=== PATIENT | female | born 1970 ===

== ENCOUNTER 2016-09-11 08:27 | Inpatient (IN) | payer MEDICARE, MEDICAID ==
[2016-09-10 09:51] VITALS: BMI 32.2
[2016-09-11] MEDS ORDERED: Lactated Ringer's 1,000 ML IV ONE ×2 (11:45→12:55)
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
[2016-09-11] MEDS ORDERED: Lidocaine 2% w Epi 1:100,000 Inj IJ ONE (12:30)
[2016-09-11] MEDS ORDERED: Bupivacaine HCl 0.5% PF (30 ml) Inj IJ ONE (12:40)
[2016-09-11] MEDS ORDERED: HYDROmorphone 0.5 mg/0.5 ml ISec IVP PRN (13:17)
[2016-09-11] MEDS ORDERED: Naloxone 0.4 mg/ml Inj (Adult) IVP PRN (13:17)
--- NOTE | 2016-09-12 08:41 | CP.PCM.CON ---
History of Present Illness - History of Present Illness History of Present Illness: 46 yo woman s/p lumbar laminectomy, POD #1, is doing well clinically. Patient does have anxiety, but states that the pain is moderately controlled. Patient has a history of chronic pain and is under the management of multiple specialists. She's been taking Fentanyl patch 50mcg/hr, Percocet 10/325mg, Neurontin 600mg BID, and both Elavil and Doxepin per psychiatry. 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 She is currently complaining of pain at surgical site, with radiation down the legs. She denies side effects from the above medications. Past Patient History - Past Medical History & Family History Past Medical History?: Yes - Past Social History Smoking Status: Never Smoked - CARDIAC Hx Cardiac Disorders: Yes Other/Comment: TACHYCARDIA DUE TO ANXIETY AND DEPRESSION - PULMONARY Hx Respiratory Disorders: No - NEUROLOGICAL Hx Neurological Disorder: Yes Hx Dizziness: Yes Hx Vertigo: Yes Other/Comment: neuropathy ble - HEENT Hx HEENT Problems: No - RENAL Hx Chronic Kidney Disease: No - ENDOCRINE/METABOLIC Hx Endocrine Disorders: No - HEMATOLOGICAL/ONCOLOGICAL Hx Blood Disorders: No Hx Anemia: Yes Hx Blood Transfusions: No - INTEGUMENTARY Hx Dermatological Problems: No - MUSCULOSKELETAL/RHEUMATOLOGICAL Hx Musculoskeletal Disorders: Yes Hx Arthritis: Yes Hx Back Pain: Yes Hx Herniated Disk: Yes Hx Rheumatoid Arthritis: Yes - GASTROINTESTINAL Hx Gastrointestinal Disorders: Yes Hx Gall Bladder Disease: Yes Hx Gastritis: Yes Other/Comment: CONSTIPATION - GENITOURINARY/GYNECOLOGICAL Hx Genitourinary Disorders: No Hx Hematuria: Yes Hx Postmenopausal Bleeding: Yes (PT.REPORTS BELIEVES BLEEDING VAGINALLY ALSO SINCE URINE PROBLEM BEGAN ) - PSYCHIATRIC Hx Emotional Abuse: No Hx Physical Abuse: No - SURGICAL HISTORY Hx Surgeries: Yes Hx Cholecystectomy: Yes Hx Dilation and Curettage: Yes Hx Orthopedic Surgery: Yes (LEFT KNEE) Other/Comment: MYOMECTOMY - ANESTHESIA Hx Anesthesia: Yes Hx Anesthesia Reactions: No Hx Malignant Hyperthermia: No Has any member of the family had a problem w/ anesthesia?: No Meds Allergies/Adverse Reactions: Allergies Allergy/AdvReac Type Severity Reaction Status Date / Time pollen Allergy THROAT Uncoded 09/11/16 08:52 CLOSED - Medications Medications: Current Medications Hydromorphone HCl (Dilaudid 0.2 Mg/Ml Sports Statistician) 0 mg IV PRN PRN; Protocol PRN Reason: Pain, severe (8-10) Naloxone HCl (Narcan) 0.1 mg IVP Q2M PRN PRN Reason: Shortness of Breath Physical Exam - Respiratory Exam Respiratory Exam: NORMAL BREATHING PATTERN - Cardiovascular Exam Cardiovascular Exam: REGULAR RHYTHM - Back Exam Back exam: paraspinal tenderness, vertebral tenderness Results - Vital Signs Recent Vital Signs: Last Vital Signs Temp 98.8 F 09/12/16 08:00 Pulse 75 09/12/16 08:00 Resp 20 09/12/16 08:00 BP 119/73 09/12/16 08:00 Pulse Ox 99 09/12/16 08:00 Assessment & Plan - Assessment and Plan (Free Text) Assessment: 46 yo woman s/p lumbar laminectomy. POD #1. 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
--- NOTE | 2016-09-12 08:42 | PCM.SURG1 ---
Surgeon's Initial Post Op Note - Surgeon's Notes Surgeon: Dr. Fox Curator [employer]icultural [employer]: Dr. Jeanie Munoz Type of Anesthesia: General Endo Anesthesia Administered By: Dr. Amaro Pre-Operative Diagnosis: Lumbar radiculopathy, pain radiating to Right lower extremity Operative Findings: Materials: 3-0 Vicryl, Skin cash Post-Operative Diagnosis: same Operation Performed: L5, S1 sonia-laminectomy Specimen/Specimens Removed: Pathology bone L5, S1 Estimated Blood Loss: EBL {In ML}: 10 Blood Products Given: N/A Drains Used: No Drains Post-Op Condition: Good Date of Surgery/Procedure: 09/11/16 Time of Surgery/Procedure: 12:40
[2016-09-12] MEDS ORDERED: oxyCODONE 10 mg Immediate Release Tab PO PRN (08:46)
[2016-09-12] MEDS ORDERED: HYDROmorphone 0.5 mg/0.5 ml ISec IVP PRN (08:47)
[2016-09-12 09:07] LABS: RBC URINE 1 /hpf (0-3); URINE BACTERIA RARE (<OCC); URINE BILIRUBIN NEGATIVE (NEGATIVE); URINE BLOOD NEGATIVE (NEGATIVE); URINE COLOR YELLOW (YELLOW); URINE GLUCOSE (UA) NEG (Normal); URINE KETONE TRACE mg/dL (NEGATIVE); URINE LEUKOCYTE ESTERASE SMALL Leu/uL (Negative); URINE PROTEIN NEGATIVE (NEGATIVE); URINE UROBILINOGEN 0.2-1.0 mg/dL (0.2-1.0); WBC URINE 10 /hpf (0-5)
--- NOTE | 2016-09-12 10:07 | OP ---
PROCEDURE DATE: 09/11/2016 PREOPERATIVE DIAGNOSIS: Herniated lumbar disk at L5-S1. POSTOPERATIVE DIAGNOSIS: Herniated lumbar disk at L5-S1. PROCEDURES: Right L5-S1 hemilaminotomy, medial facetectomy, decompression. SURGEON: Dr. Fox. ARCHITECTURAL DRAFTSMAN: Rebeka. DESCRIPTION OF PROCEDURE: The patient was brought to the operating room, administered general endotracheal anesthesia, placed in a prone position on a Conner table. Care was taken to protect all the pressure points. Back of the lumbar area thoroughly prepped and draped in standard sterile manner after marking for skin incision for lumbar laminectomy at L5-S1. After prepping and draping the area, skin has been incised. Bleeding skins edges have been controlled with bipolar engineering psychologist. Using a Bovie engineering psychologist, paraspinal muscles have been detached from attachment of spinous process and lamina of L5- S1. A Porsche retractor has been applied to outer aspect of facet joint of L5- S1 and fluoroscopy has been done to confirm this level. At this point, by using high-speed drill, the lamina of L5-S1 and medial part of the facets of L4- 5 have been drilled. Drilling is continued till the top and bottom of the ligamentum flavum has been seen. Drilling is also continued on the medial part of the facet until the turn of ligamentum flavum has been seen. Once this has been done thoroughly, thinned out segments of lamina, medial part of the facets , ligamentum flavum has been removed, decompression has been achieved. Nerve root and dural tube have been retracted medially. There was a hard disk noted. There was no extruded fragment noted and there was no diskectomy performed. However, foraminotomy is performed decompressing this area. After that, hemostasis best achieved. The fascia closed, intraspinous ligament, spinous process with 1-0 Vicryl, subcutaneous with 3-0 Vicryl, skin has been closed with intradermal 3-0 Vicryl stitches. The patient tolerated the procedure. After procedure, mobilized to the recovery room in stable neurologic condition. Manjinder Fox MD cc: [id number] TT: 09/12/2016 10:07:10 mn MTDD
[2016-09-12] MEDS: oxyCODONE 5 mg Immediate Release Tab PO PRN ×3 (10:12→20:54)
--- NOTE | 2016-09-12 12:08 | RAD ---
PROCEDURE: HISTORY: Fluoroscopy for lumbar laminectomy COMPARISON: None TECHNIQUE: Total fluoroscopic time utilized during the procedure: 3.2 seconds Cumulative dose = 1.80 mGy FINDINGS: Submitted images from the current procedure: 1 IMPRESSION: Less than 1 hour fluoroscopic time utilized during performance of the procedure
[2016-09-13] MEDS: oxyCODONE 5 mg Immediate Release Tab PO PRN ×3 (03:20→16:15)
[2016-09-13 15:50] VITALS: BP 106/71; PULSE 109; RESP 20; TEMP 98.1; O2SAT 97
== END 2016-09-13 16:35 | DRG 460 ==
LOC: H.OPSURG 08:27 → H.TEL 14:49
PROVIDERS: ADMIT Family Medicine; ATTEND Family Medicine
PROC: [UNRECOGNIZED PROCEDURE] (2016-09-11)
PROC: 00NY0ZZ Release Lumbar Spinal Cord, Open Approach (ICD-10-PCS; 2016-09-11)
PROC: [UNRECOGNIZED PROCEDURE] (principal; 2016-09-11 12:15)
DX: M51.16 Intervertebral disc disorders with radiculopathy, lumbar region (principal); G62.9 Polyneuropathy, unspecified; F32.9 Major depressive disorder, single episode, unspecified; D64.9 Anemia, unspecified; F41.9 Anxiety disorder, unspecified; M06.9 Rheumatoid arthritis, unspecified; V43.52XA Car driver injured in collision with other type car in traffic accident, initial encounter; Z90.49 Acquired absence of other specified parts of digestive tract; R00.0 Tachycardia, unspecified; K29.70 Gastritis, unspecified, without bleeding; K59.00 Constipation, unspecified; M19.90 Unspecified osteoarthritis, unspecified site

== ENCOUNTER 2016-09-13 13:35 | Inpatient (IN) | payer MEDICARE, MEDICAID ==
[2016-09-13 17:30] VITALS: BMI 30.2
[2016-09-13] MEDS ORDERED: Oxycodone/Acetaminophen 5/325 mg Tab PO PRN (17:42)
[2016-09-14] MEDS: Oxycodone/Acetaminophen 5/325 mg Tab PO PRN ×3 (02:05→22:05)
[2016-09-14 06:35] LABS: HEMOGLOBIN 12.3 g/dL (12.0-16.0); MEAN CELL VOLUME 90.5 fl (81.0-99.0); MEAN CORPUSCULAR HGB CONC 33.1 g/dL (33.0-37.0); RBC 4.11 Mil/uL (3.80-5.20); RED CELL DISTRIBUTION WIDTH 13.5 % (11.5-14.5); WHITE BLOOD COUNT 6.3 K/uL (4.8-10.8)
[2016-09-14 06:53] LABS: ALB/GLOB RATIO 1.5 (1.0-2.1); ALBUMIN 4.3 g/dL (3.5-5.0); ALT/SGPT 94 U/L (9-52); AST/SGOT 50 U/L (14-36); BLOOD UREA NITROGEN 12 mg/dl (7-17); CALCIUM 8.7 mg/dL (8.4-10.2); GFR AFRICAN-AMERICAN > 60; GFR NON-AFRICAN AMERICAN > 60
--- NOTE | 2016-09-14 10:41 | CP.PCM.HP ---
History of Present Illness - History of Present Illness History of Present Illness: This is a 46 y/o female admitted for acute rehab, Had a lumbar laminectomy for herniated discs and chronic progressive lumbar radiculopathy. postoperatively she had so much pain and not responding well to current pain meds. She lives alone in a 3rd floor apartment and had to take the stairs to get her place. Present on Admission - Present on Admission Any Indicators Present on Admission: No History of DVT/PE: No History of Uncontrolled Diabetes: No Urinary Catheter: No Decubitus Ulcer Present: No Review of Systems - Musculoskeletal Musculoskeletal: Arthralgias, Back Pain, Neck Pain Past Patient History - Past Medical History & Family History Past Medical History?: Yes - Past Social History Smoking Status: Never Smoked - CARDIAC Hx Cardiac Disorders: Yes Other/Comment: TACHYCARDIA DUE TO ANXIETY AND DEPRESSION - PULMONARY Hx Respiratory Disorders: No - NEUROLOGICAL Hx Neurological Disorder: Yes Hx Dizziness: Yes Hx Vertigo: Yes Other/Comment: neuropathy ble - HEENT Hx HEENT Problems: No - RENAL Hx Chronic Kidney Disease: No - ENDOCRINE/METABOLIC Hx Endocrine Disorders: No - HEMATOLOGICAL/ONCOLOGICAL Hx Blood Disorders: No Hx AIDS: No Hx Anemia: Yes Hx Blood Transfusions: No Hx Human Immunodeficiency Virus (HIV): No - INTEGUMENTARY Hx Dermatological Problems: No - MUSCULOSKELETAL/RHEUMATOLOGICAL Hx Falls: No - GASTROINTESTINAL Hx Gastrointestinal Disorders: Yes Hx Gall Bladder Disease: Yes Hx Gastritis: Yes Other/Comment: CONSTIPATION - GENITOURINARY/GYNECOLOGICAL Hx Genitourinary Disorders: No Hx Hematuria: Yes Hx Postmenopausal Bleeding: Yes (PT.REPORTS BELIEVES BLEEDING VAGINALLY ALSO SINCE URINE PROBLEM BEGAN ) - PSYCHIATRIC Hx Anxiety: Yes Hx Depression: Yes Hx Substance Use: No - SURGICAL HISTORY Hx Surgeries: Yes Hx Cholecystectomy: Yes Hx Dilation and Curettage: Yes Hx Orthopedic Surgery: Yes (LEFT KNEE) Other/Comment: MYOMECTOMY - ANESTHESIA Hx Anesthesia: Yes Hx Anesthesia Reactions: No Hx Malignant Hyperthermia: No Meds Allergies/Adverse Reactions: Allergies Allergy/AdvReac Type Severity Reaction Status Date / Time pollen Allergy THROAT Uncoded 09/13/16 17:30 CLOSED Physical Exam - Head Exam Head Exam: NORMAL INSPECTION - Eye Exam Eye Exam: Normal appearance - ENT Exam ENT Exam: Mucous Membranes Moist - Respiratory Exam Respiratory Exam: Clear to Auscultation Bilateral - Cardiovascular Exam Cardiovascular Exam: REGULAR RHYTHM - GI/Abdominal Exam GI & Abdominal Exam: Normal Bowel Sounds - Neurological Exam Neurological exam: CN II-XII Intact, Oriented x3 Results - Vital Signs Recent Vital Signs: Last Vital Signs Temp 97.0 F L 09/14/16 08:15 Pulse 87 09/14/16 08:15 Resp 22 09/14/16 08:15 BP 122/71 09/14/16 08:15 Pulse Ox 95 09/14/16 08:15 - Labs Result Diagrams: 09/14/16 05:40 09/18/16 07:18 Labs: Laboratory Results - last 24 hr 09/14/16 09/14/16 05:40 05:40 WBC 6.3 RBC 4.11 Hgb 12.3 Hct 37.2 MCV 90.5 MCH 30.0 MCHC 33.1 RDW 13.5 Plt Count 182 Sodium 141 Potassium 3.3 L Chloride 107 Carbon Dioxide 22 Anion Gap 15 BUN 12 Creatinine 0.6 L Est GFR ( Amer) > 60 Est GFR (Non-Af Amer) > 60 Random Glucose 114 H Calcium 8.7 Total Bilirubin 0.6 AST 50 H ALT 94 H Alkaline Phosphatase 66 Total Protein 7.2 Albumin 4.3 Globulin 2.9 Albumin/Globulin Ratio 1.5 Assessment & Plan (1) Gait abnormality Status: Acute (2) S/P lumbar laminectomy Status: Acute (3) Chronic back pain Status: Acute (4) Lumbar radiculopathy Status: Acute - Assessment and Plan (Free Text) Plan: painmeds start PT transfers Physiatry eval
--- NOTE | 2016-09-14 13:05 | CP.PCM.PN ---
Subjective - Date & Time of Evaluation Date of Evaluation: 09/14/16 Time of Evaluation: 13:03 - Subjective Subjective: lumbar surgery, post op pain and reduced function Objective - Vital Signs/Intake and Output Vital Signs (last 24 hours): Temp Pulse Resp BP Pulse Ox 97.0 F L 87 22 122/71 95 09/14/16 08:15 09/14/16 08:15 09/14/16 08:15 09/14/16 08:15 09/14/16 08:15 - Medications Medications: Current Medications Amitriptyline HCl (Elavil) 10 mg PO DAILY [facility] [place] Last Admin: 09/14/16 09:09 Dose: 10 mg Cyclobenzaprine HCl (Flexeril) 5 mg PO HS PRN PRN Reason: Muscle spasm Docusate Sodium (Colace) 100 mg PO BID [facility] Last Admin: 09/14/16 09:05 Dose: 100 mg Fentanyl (Duragesic) 1 patch TD Q3D [facility] Last Admin: 09/13/16 19:14 Dose: Not Given Fluticasone Propionate (Flonase) 1 spr BEATRIS DAILY [facility] [place] Last Admin: 09/14/16 09:07 Dose: 1 spr Gabapentin (Neurontin) 600 mg PO HS [facility] [place] Lactulose (Enulose) 20 gm PO DAILY PRN PRN Reason: Constipation Last Admin: 09/14/16 09:09 Dose: 20 gm Loratadine (Claritin) 10 mg PO PRN [facility] Nortriptyline HCl (Pamelor) 50 mg PO HS [facility] [place] Last Admin: 09/13/16 21:27 Dose: 50 mg Oxycodone/Acetaminophen (Percocet 5/325 Mg Tab) 1 tab PO Q4 PRN PRN Reason: Pain, moderate (4-7) Stop: 09/16/16 17:43 Last Admin: 09/14/16 10:20 Dose: 1 tab Oxycodone/Acetaminophen (Percocet 5/325 Mg Tab) 2 tab PO Q4 PRN PRN Reason: Pain, severe (8-10) Stop: 09/16/16 17:43 Sennosides (Senokot Tab) 8.6 mg PO HS [facility] [place] Last Admin: 09/13/16 21:27 Dose: 8.6 mg Topiramate (Topamax) 100 mg PO BID [facility] [place] Last Admin: 09/14/16 09:09 Dose: 100 mg - Labs Labs: 09/14/16 05:40 09/14/16 05:40 Physiatry Overall Plan of Care - Overall Plan of Care Estimated Length of Stay in Weeks: 2 Rehab Impairment: Mobility, Gait, Balance Etiologic Diagnosis: Other (lumbar surgery) Rehab/Medical Prognosis: Fair - Anticipated Interventions Physical Therapy:: Yes Occupational Therapy:: Yes Speech Therapy:: No Recreational Therapy:: Yes - Therapy Goals Bed Mobility: Supervision Ambulation: Supervision Functional Positional Changes:: Supervision - Discharge Plan Identification of Barriers to Discharge: Home Situation Discharge Destination: Home
--- NOTE | 2016-09-14 13:07 | CP.PCM.CON ---
History of Present Illness - History of Present Illness History of Present Illness: Dr Vela PMR consultation on Mari Hernandez, born 1970, who has been admitted to [facility] for acute inpatient rehabilitation following an admission for intractable lumbar radiculopathy. She underwent a L5/S1 hemilaminectomy and facetectomy. There is still right lumbar radicular pain that is described as 4/ 10. She has not had a BM since Saturday (4+ days). Review of Systems - Constitutional Constitutional: absent: Anorexia, Chills - EENT Eyes: absent: Blind Spots, Blurred Vision Ears: absent: Decreased Hearing Nose/Mouth/Throat: absent: Nasal Congestion - Cardiovascular Cardiovascular: absent: Chest Pain - Respiratory Respiratory: absent: Cough, Dyspnea, Hemoptysis - Gastrointestinal Gastrointestinal: Bloating, Constipation - Musculoskeletal Musculoskeletal: Back Pain - Neurological Neurological: absent: Abnormal Hearing, Abnormal Movements Past Patient History - Past Medical History & Family History Past Medical History?: Yes - Past Social History Smoking Status: Never Smoked Alcohol: None Drugs: Denies Home Situation {Lives}: With Family (3rd floor) - CARDIAC Hx Cardiac Disorders: Yes Other/Comment: TACHYCARDIA DUE TO ANXIETY AND DEPRESSION - PULMONARY Hx Respiratory Disorders: No - NEUROLOGICAL Hx Neurological Disorder: Yes Hx Dizziness: Yes Hx Vertigo: Yes Other/Comment: neuropathy ble - HEENT Hx HEENT Problems: No - RENAL Hx Chronic Kidney Disease: No - ENDOCRINE/METABOLIC Hx Endocrine Disorders: No - HEMATOLOGICAL/ONCOLOGICAL Hx Blood Disorders: No Hx AIDS: No Hx Anemia: Yes Hx Blood Transfusions: No Hx Human Immunodeficiency Virus (HIV): No - INTEGUMENTARY Hx Dermatological Problems: No - MUSCULOSKELETAL/RHEUMATOLOGICAL Hx Falls: No - GASTROINTESTINAL Hx Gastrointestinal Disorders: Yes Hx Gall Bladder Disease: Yes Hx Gastritis: Yes Other/Comment: CONSTIPATION - GENITOURINARY/GYNECOLOGICAL Hx Genitourinary Disorders: No Hx Hematuria: Yes Hx Postmenopausal Bleeding: Yes (PT.REPORTS BELIEVES BLEEDING VAGINALLY ALSO SINCE URINE PROBLEM BEGAN ) - PSYCHIATRIC Hx Anxiety: Yes Hx Depression: Yes Hx Substance Use: No - SURGICAL HISTORY Hx Surgeries: Yes Hx Cholecystectomy: Yes Hx Dilation and Curettage: Yes Hx Orthopedic Surgery: Yes (LEFT KNEE) Other/Comment: MYOMECTOMY - ANESTHESIA Hx Anesthesia: Yes Hx Anesthesia Reactions: No Hx Malignant Hyperthermia: No Meds Allergies/Adverse Reactions: Allergies Allergy/AdvReac Type Severity Reaction Status Date / Time pollen Allergy THROAT Uncoded 09/13/16 17:30 CLOSED - Medications Medications: Current Medications Amitriptyline HCl (Elavil) 10 mg PO DAILY [facility] Last Admin: 09/14/16 09:09 Dose: 10 mg Cyclobenzaprine HCl (Flexeril) 5 mg PO HS PRN PRN Reason: Muscle spasm Docusate Sodium (Colace) 100 mg PO BID [facility] Last Admin: 09/14/16 09:05 Dose: 100 mg Fentanyl (Duragesic) 1 patch TD Q3D [facility] Last Admin: 09/13/16 19:14 Dose: Not Given Fluticasone Propionate (Flonase) 1 spr BEATRIS DAILY [facility] Last Admin: 09/14/16 09:07 Dose: 1 spr Gabapentin (Neurontin) 600 mg PO [facility] Lactulose (Enulose) 20 gm PO DAILY PRN PRN Reason: Constipation Last Admin: 09/14/16 09:09 Dose: 20 gm Loratadine (Claritin) 10 mg PO PRN [facility] Nortriptyline HCl (Pamelor) 50 mg PO [facility] Last Admin: 09/13/16 21:27 Dose: 50 mg Oxycodone/Acetaminophen (Percocet 5/325 Mg Tab) 1 tab PO Q4 PRN PRN Reason: Pain, moderate (4-7) Stop: 09/16/16 17:43 Last Admin: 09/14/16 10:20 Dose: 1 tab Oxycodone/Acetaminophen (Percocet 5/325 Mg Tab) 2 tab PO Q4 PRN PRN Reason: Pain, severe (8-10) Stop: 09/16/16 17:43 Sennosides (Senokot Tab) 8.6 mg PO [facility] Last Admin: 09/13/16 21:27 Dose: 8.6 mg Topiramate (Topamax) 100 mg PO BID [facility] Last Admin: 09/14/16 09:09 Dose: 100 mg Physical Exam - Constitutional Appears: No Acute Distress - Head Exam Head Exam: ATRAUMATIC, NORMAL INSPECTION, NORMOCEPHALIC - Eye Exam Eye Exam: EOMI, Normal appearance - ENT Exam ENT Exam: Mucous Membranes Moist - Respiratory Exam Respiratory Exam: NORMAL BREATHING PATTERN - Cardiovascular Exam Cardiovascular Exam: REGULAR RHYTHM - GI/Abdominal Exam GI & Abdominal Exam: Distended (markedly) - Extremities Exam Extremities exam: Negative for: calf tenderness - Neurological Exam Neurological exam: Alert, Oriented x3 - Psychiatric Exam Psychiatric exam: Normal Affect, Normal Mood - Skin Skin Exam: Warm Results - Vital Signs Recent Vital Signs: Last Vital Signs Temp 97.0 F L 09/14/16 08:15 Pulse 87 09/14/16 08:15 Resp 22 09/14/16 08:15 BP 122/71 09/14/16 08:15 Pulse Ox 95 09/14/16 08:15 - Labs Result Diagrams: 09/14/16 05:40 09/14/16 05:40 Labs: Laboratory Results - last 24 hr 09/14/16 09/14/16 05:40 05:40 WBC 6.3 RBC 4.11 Hgb 12.3 Hct 37.2 MCV 90.5 MCH 30.0 MCHC 33.1 RDW 13.5 Plt Count 182 Sodium 141 Potassium 3.3 L Chloride 107 Carbon Dioxide 22 Anion Gap 15 BUN 12 Creatinine 0.6 L Est GFR ( Amer) > 60 Est GFR (Non-Af Amer) > 60 Random Glucose 114 H Calcium 8.7 Total Bilirubin 0.6 AST 50 H ALT 94 H Alkaline Phosphatase 66 Total Protein 7.2 Albumin 4.3 Globulin 2.9 Albumin/Globulin Ratio 1.5 Assessment & Plan - Assessment and Plan (Free Text) Assessment: lumbar radiculopathy 04.130 impairment code PT/OT to continue to help increase functional independence Team conference for d/c planning Pain: controlled Vascular: no evidence of DVT GI: severe constipation not relieved with lactulose, will give Fleets, discussed with nursing Patient is an excellent acute rehabilitation candidate and will have focused pain management, wound care, PT, OT and recreational therapy to help facilitate a safe and appropriate d/c plan
[2016-09-15] MEDS: Oxycodone/Acetaminophen 5/325 mg Tab PO PRN ×2 (08:39→21:08)
[2016-09-15] MEDS: Nasal Spray(Ocean spray) NAS PRN (17:39)
[2016-09-16] MEDS ORDERED: FENTANYL 50 MCG TD SCH (09:00)
[2016-09-16] MEDS ORDERED: FENTANYL TD SCH (09:00)
[2016-09-16] MEDS ORDERED: Alum-Mag Hydrox-Simethicone Susp (30 mL) PO PRN (20:15)
[2016-09-17] MEDS: Pantoprazole 40 mg EC Tab PO SCH (08:01)
[2016-09-17] MEDS: Oxycodone/Acetaminophen 5/325 mg Tab PO PRN (08:04)
[2016-09-17] MEDS ORDERED: Alum-Mag Hydrox-Simethicone Susp (30 mL) PO SCH (09:00)
[2016-09-17 20:10] LABS: SQUAMOUS EPITHIAL 1 /hpf (0-5); URINE BILIRUBIN NEGATIVE (NEGATIVE); URINE BLOOD NEGATIVE (NEGATIVE); URINE CLARITY SLIGHTY-CLOUDY (Clear); URINE COLOR YELLOW (YELLOW); URINE GLUCOSE (UA) NEG (Normal); URINE LEUKOCYTE ESTERASE NEG Leu/uL (Negative); URINE NITRATE NEGATIVE (NEGATIVE); URINE PROTEIN NEGATIVE (NEGATIVE)
[2016-09-17] MEDS: Tmp-Smz 800 mg-160 mg DS Tab PO SCH (21:07)
[2016-09-18 07:52] LABS: BLOOD UREA NITROGEN 18 mg/dl (7-17); CALCIUM 9.2 mg/dL (8.4-10.2); GFR AFRICAN-AMERICAN > 60; GFR NON-AFRICAN AMERICAN > 60
[2016-09-18] MEDS: Tmp-Smz 800 mg-160 mg DS Tab PO SCH ×2 (08:37→21:08)
[2016-09-18] MEDS: Pantoprazole 40 mg EC Tab PO SCH (08:37)
[2016-09-18] MEDS: Oxycodone/Acetaminophen 5/325 mg Tab PO PRN (08:46)
--- NOTE | 2016-09-18 09:37 | CP.PCM.PN ---
Subjective - Date & Time of Evaluation Date of Evaluation: 09/15/16 Time of Evaluation: 10:00 - Subjective Subjective: patient continues to have a lot of back pain. Has no fever. Objective - Vital Signs/Intake and Output Vital Signs (last 24 hours): Temp Pulse Resp BP Pulse Ox 97.5 F L 86 20 132/76 98 09/18/16 08:00 09/18/16 08:00 09/18/16 08:00 09/18/16 08:00 09/18/16 08:00 - Medications Medications: Current Medications Al Hydrox/Mg Hydrox/Simethicone (Maalox Plus 30 Ml) 30 ml PO TID PRN PRN Reason: Heartburn Last Admin: 09/16/16 20:36 Dose: 30 ml Amitriptyline HCl (Elavil) 10 mg PO DAILY [facility] Last Admin: 09/18/16 08:38 Dose: 10 mg Cyclobenzaprine HCl (Flexeril) 5 mg PO HS PRN PRN Reason: Muscle spasm Docusate Sodium (Colace) 100 mg PO BID [facility] Last Admin: 09/18/16 08:37 Dose: Not Given Fentanyl (Duragesic) 1 patch TD Q3D@0900 [facility] Last Admin: 09/16/16 08:29 Dose: 1 patch Fluticasone Propionate (Flonase) 1 spr BEATRIS BID [facility] Last Admin: 09/18/16 08:38 Dose: Not Given Gabapentin (Neurontin) 600 mg PO [facility] Last Admin: 09/17/16 21:07 Dose: 600 mg Lactulose (Enulose) 20 gm PO DAILY PRN PRN Reason: Constipation Last Admin: 09/15/16 08:35 Dose: 20 gm Loratadine (Claritin) 10 mg PO DAILY [facility] Last Admin: 09/18/16 08:41 Dose: Not Given Nortriptyline HCl (Pamelor) 50 mg PO [facility] Last Admin: 09/17/16 21:07 Dose: 50 mg Oxycodone/Acetaminophen (Percocet 5/325 Mg Tab) 1 tab PO Q4 PRN PRN Reason: Pain, moderate (4-7) Stop: 09/20/16 17:43 Last Admin: 09/18/16 08:46 Dose: 1 tab Oxycodone/Acetaminophen (Percocet 5/325 Mg Tab) 2 tab PO Q4 PRN PRN Reason: Pain, severe (8-10) Stop: 09/20/16 17:43 Last Admin: 09/16/16 10:59 Dose: 2 tab Pantoprazole Sodium (Protonix Ec Tab) 40 mg PO DAILY [facility] Last Admin: 09/18/16 08:37 Dose: 40 mg Sennosides (Senokot Tab) 8.6 mg PO HS [facility] Last Admin: 09/17/16 21:50 Dose: Not Given Sodium Chloride ([place] Nasal [place]) 1 sprays BEATRIS Q4 PRN PRN Reason: Nasal congestion Last Admin: 09/15/16 17:39 Dose: 1 spr Topiramate (Topamax) 100 mg PO BID [facility] Last Admin: 09/18/16 08:39 Dose: 100 mg Trimethoprim/Sulfamethoxazole (Bactrim Ds Tab) 1 tab PO Q12 [facility] Last Admin: 09/18/16 08:37 Dose: 1 tab - Labs Labs: 09/14/16 05:40 09/18/16 07:18 - Head Exam Head Exam: NORMAL INSPECTION - Eye Exam Eye Exam: Normal appearance - ENT Exam ENT Exam: Mucous Membranes Moist, Normal Oropharynx - Cardiovascular Exam Cardiovascular Exam: REGULAR RHYTHM - GI/Abdominal Exam GI & Abdominal Exam: Normal Bowel Sounds Assessment and Plan (1) Gait abnormality Status: Acute (2) S/P lumbar laminectomy Status: Acute (3) Chronic back pain Status: Acute (4) Lumbar radiculopathy Status: Acute - Assessment and Plan (Free Text) Plan: Cont meds gabapentin percocet tramadol cont PT
--- NOTE | 2016-09-18 09:38 | CP.PCM.PN ---
Subjective - Date & Time of Evaluation Date of Evaluation: 09/16/16 Time of Evaluation: 10:00 - Subjective Subjective: Patient was able to do some therapy but has a lot of back pains. Has no bm Has no chest pain or SOB. Objective - Vital Signs/Intake and Output Vital Signs (last 24 hours): Temp Pulse Resp BP Pulse Ox 97.5 F L 86 20 132/76 98 09/18/16 08:00 09/18/16 08:00 09/18/16 08:00 09/18/16 08:00 09/18/16 08:00 - Medications Medications: Current Medications Al Hydrox/Mg Hydrox/Simethicone (Maalox Plus 30 Ml) 30 ml PO TID PRN PRN Reason: Heartburn Last Admin: 09/16/16 20:36 Dose: 30 ml Amitriptyline HCl (Elavil) 10 mg PO DAILY [facility] Last Admin: 09/18/16 08:38 Dose: 10 mg Cyclobenzaprine HCl (Flexeril) 5 mg PO HS PRN PRN Reason: Muscle spasm Docusate Sodium (Colace) 100 mg PO BID [facility] Last Admin: 09/18/16 08:37 Dose: Not Given Fentanyl (Duragesic) 1 patch TD Q3D@0900 [facility] Last Admin: 09/16/16 08:29 Dose: 1 patch Fluticasone Propionate (Flonase) 1 spr BEATRIS BID [facility] Last Admin: 09/18/16 08:38 Dose: Not Given Gabapentin (Neurontin) 600 mg PO HS [facility] Last Admin: 09/17/16 21:07 Dose: 600 mg Lactulose (Enulose) 20 gm PO DAILY PRN PRN Reason: Constipation Last Admin: 09/15/16 08:35 Dose: 20 gm Loratadine (Claritin) 10 mg PO DAILY [facility] Last Admin: 09/18/16 08:41 Dose: Not Given Nortriptyline HCl (Pamelor) 50 mg PO HS [facility] Last Admin: 09/17/16 21:07 Dose: 50 mg Oxycodone/Acetaminophen (Percocet 5/325 Mg Tab) 1 tab PO Q4 PRN PRN Reason: Pain, moderate (4-7) Stop: 09/20/16 17:43 Last Admin: 09/18/16 08:46 Dose: 1 tab Oxycodone/Acetaminophen (Percocet 5/325 Mg Tab) 2 tab PO Q4 PRN PRN Reason: Pain, severe (8-10) Stop: 09/20/16 17:43 Last Admin: 09/16/16 10:59 Dose: 2 tab Pantoprazole Sodium (Protonix Ec Tab) 40 mg PO DAILY [facility] Last Admin: 09/18/16 08:37 Dose: 40 mg Sennosides (Senokot Tab) 8.6 mg PO HS [facility] Last Admin: 09/17/16 21:50 Dose: Not Given Sodium Chloride ([place] Nasal [place]) 1 sprays BEATRIS Q4 PRN PRN Reason: Nasal congestion Last Admin: 09/15/16 17:39 Dose: 1 spr Topiramate (Topamax) 100 mg PO BID [facility] Last Admin: 09/18/16 08:39 Dose: 100 mg Trimethoprim/Sulfamethoxazole (Bactrim Ds Tab) 1 tab PO Q12 [facility] Last Admin: 09/18/16 08:37 Dose: 1 tab - Labs Labs: 09/14/16 05:40 09/18/16 07:18 - Head Exam Head Exam: NORMAL INSPECTION - Eye Exam Eye Exam: Normal appearance - ENT Exam ENT Exam: Mucous Membranes Moist - GI/Abdominal Exam GI & Abdominal Exam: Normal Bowel Sounds - Neurological Exam Neurological Exam: Awake, Oriented x3 Assessment and Plan (1) Gait abnormality Status: Acute (2) S/P lumbar laminectomy Status: Acute (3) Chronic back pain Status: Acute (4) Lumbar radiculopathy Status: Acute - Assessment and Plan (Free Text) Plan: Cont meds cont tx Cont PT pain meds.
--- NOTE | 2016-09-18 09:41 | CP.PCM.PN ---
Subjective - Date & Time of Evaluation Date of Evaluation: 09/17/16 Time of Evaluation: 10:00 - Subjective Subjective: Patient is doing a lot better. has one episode of loose stools Has no chets pain or SOB. Objective - Vital Signs/Intake and Output Vital Signs (last 24 hours): Temp Pulse Resp BP Pulse Ox 97.5 F L 86 20 132/76 98 09/18/16 08:00 09/18/16 08:00 09/18/16 08:00 09/18/16 08:00 09/18/16 08:00 - Medications Medications: Current Medications Al Hydrox/Mg Hydrox/Simethicone (Maalox Plus 30 Ml) 30 ml PO TID PRN PRN Reason: Heartburn Last Admin: 09/16/16 20:36 Dose: 30 ml Amitriptyline HCl (Elavil) 10 mg PO DAILY [facility] Last Admin: 09/18/16 08:38 Dose: 10 mg Cyclobenzaprine HCl (Flexeril) 5 mg PO HS PRN PRN Reason: Muscle spasm Docusate Sodium (Colace) 100 mg PO BID [facility] Last Admin: 09/18/16 08:37 Dose: Not Given Fentanyl (Duragesic) 1 patch TD Q3D@0900 [facility] Last Admin: 09/16/16 08:29 Dose: 1 patch Fluticasone Propionate (Flonase) 1 spr BEATRIS BID [facility] Last Admin: 09/18/16 08:38 Dose: Not Given Gabapentin (Neurontin) 600 mg PO [facility] Last Admin: 09/17/16 21:07 Dose: 600 mg Lactulose (Enulose) 20 gm PO DAILY PRN PRN Reason: Constipation Last Admin: 09/15/16 08:35 Dose: 20 gm Loratadine (Claritin) 10 mg PO DAILY [facility] Last Admin: 09/18/16 08:41 Dose: Not Given Nortriptyline HCl (Pamelor) 50 mg PO [facility] Last Admin: 09/17/16 21:07 Dose: 50 mg Oxycodone/Acetaminophen (Percocet 5/325 Mg Tab) 1 tab PO Q4 PRN PRN Reason: Pain, moderate (4-7) Stop: 09/20/16 17:43 Last Admin: 09/18/16 08:46 Dose: 1 tab Oxycodone/Acetaminophen (Percocet 5/325 Mg Tab) 2 tab PO Q4 PRN PRN Reason: Pain, severe (8-10) Stop: 09/20/16 17:43 Last Admin: 09/16/16 10:59 Dose: 2 tab Pantoprazole Sodium (Protonix Ec Tab) 40 mg PO DAILY [facility] Last Admin: 09/18/16 08:37 Dose: 40 mg Sennosides (Senokot Tab) 8.6 mg PO HS [facility] Last Admin: 09/17/16 21:50 Dose: Not Given Sodium Chloride ([place] Nasal [place]) 1 sprays BEATRIS Q4 PRN PRN Reason: Nasal congestion Last Admin: 09/15/16 17:39 Dose: 1 spr Topiramate (Topamax) 100 mg PO BID [facility] Last Admin: 09/18/16 08:39 Dose: 100 mg Trimethoprim/Sulfamethoxazole (Bactrim Ds Tab) 1 tab PO Q12 [facility] Last Admin: 09/18/16 08:37 Dose: 1 tab - Labs Labs: 09/14/16 05:40 09/18/16 07:18 - Head Exam Head Exam: NORMAL INSPECTION - Eye Exam Eye Exam: Normal appearance - ENT Exam ENT Exam: Mucous Membranes Moist - Respiratory Exam Respiratory Exam: Clear to Ausculation Bilateral - Cardiovascular Exam Cardiovascular Exam: REGULAR RHYTHM - GI/Abdominal Exam GI & Abdominal Exam: Normal Bowel Sounds - Neurological Exam Neurological Exam: CN II-XII Intact, Oriented x3 Assessment and Plan (1) Gait abnormality Status: Acute (2) S/P lumbar laminectomy Status: Acute (3) Chronic back pain Status: Acute (4) Lumbar radiculopathy Status: Acute - Assessment and Plan (Free Text) Plan: Con tmeds Cont tx Cont PT
--- NOTE | 2016-09-18 09:46 | CP.PCM.PN ---
Subjective - Date & Time of Evaluation Date of Evaluation: 09/18/16 Time of Evaluation: 09:46 - Subjective Subjective: patinet has few episodes of loose stools Has no fever Has no vomiting Has no abd pain Objective - Vital Signs/Intake and Output Vital Signs (last 24 hours): Temp Pulse Resp BP Pulse Ox 97.5 F L 86 20 132/76 98 09/18/16 08:00 09/18/16 08:00 09/18/16 08:00 09/18/16 08:00 09/18/16 08:00 - Medications Medications: Current Medications Al Hydrox/Mg Hydrox/Simethicone (Maalox Plus 30 Ml) 30 ml PO TID PRN PRN Reason: Heartburn Last Admin: 09/16/16 20:36 Dose: 30 ml Amitriptyline HCl (Elavil) 10 mg PO DAILY [facility] Last Admin: 09/18/16 08:38 Dose: 10 mg Cyclobenzaprine HCl (Flexeril) 5 mg PO HS PRN PRN Reason: Muscle spasm Docusate Sodium (Colace) 100 mg PO BID [facility] Last Admin: 09/18/16 08:37 Dose: Not Given Fentanyl (Duragesic) 1 patch TD Q3D@0900 [facility] Last Admin: 09/16/16 08:29 Dose: 1 patch Fluticasone Propionate (Flonase) 1 spr BEATRIS BID [facility] Last Admin: 09/18/16 08:38 Dose: Not Given Gabapentin (Neurontin) 600 mg PO [facility] Last Admin: 09/17/16 21:07 Dose: 600 mg Lactulose (Enulose) 20 gm PO DAILY PRN PRN Reason: Constipation Last Admin: 09/15/16 08:35 Dose: 20 gm Loratadine (Claritin) 10 mg PO DAILY [facility] Last Admin: 09/18/16 08:41 Dose: Not Given Nortriptyline HCl (Pamelor) 50 mg PO [facility] Last Admin: 09/17/16 21:07 Dose: 50 mg Oxycodone/Acetaminophen (Percocet 5/325 Mg Tab) 1 tab PO Q4 PRN PRN Reason: Pain, moderate (4-7) Stop: 09/20/16 17:43 Last Admin: 09/18/16 08:46 Dose: 1 tab Oxycodone/Acetaminophen (Percocet 5/325 Mg Tab) 2 tab PO Q4 PRN PRN Reason: Pain, severe (8-10) Stop: 09/20/16 17:43 Last Admin: 09/16/16 10:59 Dose: 2 tab Pantoprazole Sodium (Protonix Ec Tab) 40 mg PO DAILY [facility] Last Admin: 09/18/16 08:37 Dose: 40 mg Sennosides (Senokot Tab) 8.6 mg PO HS [facility] Last Admin: 09/17/16 21:50 Dose: Not Given Sodium Chloride ([place] Nasal [place]) 1 sprays BEATRIS Q4 PRN PRN Reason: Nasal congestion Last Admin: 09/15/16 17:39 Dose: 1 spr Topiramate (Topamax) 100 mg PO BID [facility] Last Admin: 09/18/16 08:39 Dose: 100 mg Trimethoprim/Sulfamethoxazole (Bactrim Ds Tab) 1 tab PO Q12 [facility] Last Admin: 09/18/16 08:37 Dose: 1 tab - Labs Labs: 09/14/16 05:40 09/18/16 07:18 - Head Exam Head Exam: NORMAL INSPECTION - Eye Exam Eye Exam: Normal appearance - Respiratory Exam Respiratory Exam: Clear to Ausculation Bilateral - Cardiovascular Exam Cardiovascular Exam: REGULAR RHYTHM - GI/Abdominal Exam GI & Abdominal Exam: Normal Bowel Sounds Assessment and Plan (1) Gait abnormality Status: Acute (2) S/P lumbar laminectomy Status: Acute (3) Chronic back pain Status: Acute (4) Lumbar radiculopathy Status: Acute - Assessment and Plan (Free Text) Plan: Con tmeds Cont tx Cont PT Pain meds Lomotil stool C diff
[2016-09-18] MEDS: Cholestyramine 4 gm/Pkt UD PO SCH ×2 (13:12→16:21)
[2016-09-18] MEDS ORDERED: Potassium Chloride 20 mEq ER Tab PO ONE (13:36)
--- NOTE | 2016-09-18 13:40 | CP.PCM.PN ---
Subjective - Date & Time of Evaluation Date of Evaluation: 09/18/16 Time of Evaluation: 13:39 - Subjective Subjective: Patient seen in room doing ok notes significant decrease in pain and reduction of right LE radicular symptoms happy with progress continue current care Objective - Vital Signs/Intake and Output Vital Signs (last 24 hours): Temp Pulse Resp BP Pulse Ox 97.5 F L 86 20 132/76 98 09/18/16 08:00 09/18/16 08:00 09/18/16 08:00 09/18/16 08:00 09/18/16 08:00 - Medications Medications: Current Medications Al Hydrox/Mg Hydrox/Simethicone (Maalox Plus 30 Ml) 30 ml PO TID PRN PRN Reason: Heartburn Last Admin: 09/16/16 20:36 Dose: 30 ml Amitriptyline HCl (Elavil) 10 mg PO DAILY [facility] Last Admin: 09/18/16 08:38 Dose: 10 mg Cholestyramine Resin (Questran) 4 gm PO TID [facility] Last Admin: 09/18/16 13:12 Dose: 4 gm Cyclobenzaprine HCl (Flexeril) 5 mg PO HS PRN PRN Reason: Muscle spasm Docusate Sodium (Colace) 100 mg PO BID [facility] Last Admin: 09/18/16 08:37 Dose: Not Given Fentanyl (Duragesic) 1 patch TD Q3D@0900 [facility] Last Admin: 09/16/16 08:29 Dose: 1 patch Fluticasone Propionate (Flonase) 1 spr BEATRIS BID [facility] Last Admin: 09/18/16 08:38 Dose: Not Given Gabapentin (Neurontin) 600 mg PO [facility] Last Admin: 09/17/16 21:07 Dose: 600 mg Lactulose (Enulose) 20 gm PO DAILY PRN PRN Reason: Constipation Last Admin: 09/15/16 08:35 Dose: 20 gm Loratadine (Claritin) 10 mg PO DAILY [facility] Last Admin: 09/18/16 08:41 Dose: Not Given Nortriptyline HCl (Pamelor) 50 mg PO HS [facility] Last Admin: 09/17/16 21:07 Dose: 50 mg Oxycodone/Acetaminophen (Percocet 5/325 Mg Tab) 1 tab PO Q4 PRN PRN Reason: Pain, moderate (4-7) Stop: 09/20/16 17:43 Last Admin: 09/18/16 08:46 Dose: 1 tab Oxycodone/Acetaminophen (Percocet 5/325 Mg Tab) 2 tab PO Q4 PRN PRN Reason: Pain, severe (8-10) Stop: 09/20/16 17:43 Last Admin: 09/16/16 10:59 Dose: 2 tab Pantoprazole Sodium (Protonix Ec Tab) 40 mg PO DAILY [facility] Last Admin: 09/18/16 08:37 Dose: 40 mg Potassium Chloride (K-Dur 20 Meq Er Tab) 40 meq PO DAILY [facility] Potassium Chloride ([place]-Con 10) 40 meq PO ONCE ONE Stop: 09/18/16 13:37 Sennosides (Senokot Tab) 8.6 mg PO HS [facility] Last Admin: 09/17/16 21:50 Dose: Not Given Sodium Chloride ([place] Nasal [place]) 1 sprays BEATRIS Q4 PRN PRN Reason: Nasal congestion Last Admin: 09/15/16 17:39 Dose: 1 spr Topiramate (Topamax) 100 mg PO BID [facility] Last Admin: 09/18/16 08:39 Dose: 100 mg Trimethoprim/Sulfamethoxazole (Bactrim Ds Tab) 1 tab PO Q12 [facility] Last Admin: 09/18/16 08:37 Dose: 1 tab - Labs Labs: 09/14/16 05:40 09/18/16 07:18
[2016-09-18] MEDS: Nasal Spray(Ocean spray) NAS PRN (16:18)
[2016-09-19 06:49] LABS: BLOOD UREA NITROGEN 13 mg/dl (7-17); CALCIUM 9.2 mg/dL (8.4-10.2); GFR AFRICAN-AMERICAN > 60; GFR NON-AFRICAN AMERICAN > 60
[2016-09-19] MEDS: Tmp-Smz 800 mg-160 mg DS Tab PO SCH ×2 (08:33→21:02)
[2016-09-19] MEDS: Potassium Chloride 20 mEq ER Tab PO SCH (08:35)
[2016-09-19] MEDS: Pantoprazole 40 mg EC Tab PO SCH (08:35)
[2016-09-19] MEDS: Cholestyramine 4 gm/Pkt UD PO SCH (08:36)
--- NOTE | 2016-09-19 10:11 | CP.PCM.PN ---
Subjective - Date & Time of Evaluation Date of Evaluation: 09/19/16 Time of Evaluation: 10:09 - Subjective Subjective: Patient has no chest pain or SOB Afebrile Has no diarrhea today Doing better with PT Objective - Vital Signs/Intake and Output Vital Signs (last 24 hours): Temp Pulse Resp BP Pulse Ox 97 F L 84 18 100/70 100 09/19/16 07:57 09/19/16 07:57 09/19/16 07:57 09/19/16 07:57 09/19/16 07:57 - Medications Medications: Current Medications Al Hydrox/Mg Hydrox/Simethicone (Maalox Plus 30 Ml) 30 ml PO TID PRN PRN Reason: Heartburn Last Admin: 09/16/16 20:36 Dose: 30 ml Amitriptyline HCl (Elavil) 10 mg PO DAILY [facility] Last Admin: 09/19/16 08:34 Dose: 10 mg Cyclobenzaprine HCl (Flexeril) 5 mg PO HS PRN PRN Reason: Muscle spasm Docusate Sodium (Colace) 100 mg PO BID [facility] Last Admin: 09/19/16 08:34 Dose: 100 mg Fentanyl (Duragesic) 1 patch TD Q3D@0900 [facility] Last Admin: 09/19/16 08:32 Dose: 1 patch Fluticasone Propionate (Flonase) 1 spr BEATRIS BID [facility] Last Admin: 09/18/16 16:19 Dose: 1 spr Gabapentin (Neurontin) 600 mg PO HS [facility] Last Admin: 09/18/16 21:09 Dose: 600 mg Lactulose (Enulose) 20 gm PO DAILY PRN PRN Reason: Constipation Last Admin: 09/15/16 08:35 Dose: 20 gm Loratadine (Claritin) 10 mg PO DAILY [facility] Last Admin: 09/19/16 08:50 Dose: Not Given Nortriptyline HCl (Pamelor) 50 mg PO [facility] Last Admin: 09/18/16 21:09 Dose: 50 mg Oxycodone/Acetaminophen (Percocet 5/325 Mg Tab) 1 tab PO Q4 PRN PRN Reason: Pain, moderate (4-7) Stop: 09/20/16 17:43 Last Admin: 09/18/16 08:46 Dose: 1 tab Oxycodone/Acetaminophen (Percocet 5/325 Mg Tab) 2 tab PO Q4 PRN PRN Reason: Pain, severe (8-10) Stop: 09/20/16 17:43 Last Admin: 09/16/16 10:59 Dose: 2 tab Pantoprazole Sodium (Protonix Ec Tab) 40 mg PO DAILY [facility] Last Admin: 09/19/16 08:35 Dose: 40 mg Potassium Chloride (K-Dur 20 Meq Er Tab) 40 meq PO DAILY [facility] Last Admin: 09/19/16 08:35 Dose: 40 meq Sennosides (Senokot Tab) 8.6 mg PO HS [facility] Last Admin: 09/18/16 21:11 Dose: Not Given Sodium Chloride ([place] Nasal [place]) 1 sprays BEATRIS Q4 PRN PRN Reason: Nasal congestion Last Admin: 09/18/16 16:18 Dose: 1 spr Topiramate (Topamax) 100 mg PO BID [facility] Last Admin: 09/19/16 08:36 Dose: 100 mg Trimethoprim/Sulfamethoxazole (Bactrim Ds Tab) 1 tab PO Q12 [facility] Last Admin: 09/19/16 08:33 Dose: 1 tab - Labs Labs: 09/14/16 05:40 09/19/16 05:20 - Head Exam Head Exam: NORMAL INSPECTION - Eye Exam Eye Exam: Normal appearance - Respiratory Exam Respiratory Exam: Clear to Ausculation Bilateral - Cardiovascular Exam Cardiovascular Exam: REGULAR RHYTHM - GI/Abdominal Exam GI & Abdominal Exam: Normal Bowel Sounds - Neurological Exam Neurological Exam: CN II-XII Intact, Oriented x3 - Psychiatric Exam Psychiatric exam: Normal Mood Assessment and Plan (1) Gait abnormality Status: Acute (2) S/P lumbar laminectomy Status: Acute (3) Chronic back pain Status: Acute (4) Lumbar radiculopathy Status: Acute - Assessment and Plan (Free Text) Plan: Cont meds Conttx Cont PT 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
--- NOTE | 2016-09-19 12:07 | PSY.TMCNF ---
Nursing - Vital Signs Vital Signs (Last 8 hours): Vital Signs 09/19/16 07:57 Temperature 97 F L Pulse Rate 84 Respiratory 18 Rate Blood Pressure 100/70 O2 Sat by Pulse 100 Oximetry Pain: 0 - Precautions: Isolation: Special Contact - Medications/Other Issues Comment: patient had loose bm and abdominal upst had 5x bm yesterday blood works with low potassium given [address] on contact precaution for c-diff untill specimen sent with the result - Consults Comment: Dr Vela - Skin Incision Site: back Dressing Status: Clean, Dry, Intact Incision: Healing Well Incision Line Treatment: cleanse with ns gauze and tape daily - Wound Lower Back Wound Type: Incision Tunneling: No Undermining: No Wound Drainage Amount: None Wound General Appearance: Clean/Dry Wound Dressing Status: Dry & Intact Dressing Changed: No Wound Packing Type: Gauze Pads, Not applicable Wound Primary Dressing Type: Gauze Pads - Toileting Toileting: Minimal Assistance - Bladder Management Bladder Pattern: Normal Voiding Method: Toilet - Bowel Management Bowel Pattern: Diarrhea Comment: 2x soft to loose bm Bowel Management: Minimal Assistance - Transfers Transfers: Supervision - ADL's ADL's: Supervision - Pain Management Comments: on percocet for pain - Patient/Family Teaching Comments: spinal precaution ,isolation precaution, handwashing safety fall medication teaching - Goals/Time Frame Comments: as per multidiciplinary plan of care Physical Therapy - Bed Mobility Bed Mobility: Verbal Cues, Minimal Assistance Comment: log rolling method, HOB elevated w/ bed rail - Transfers Sit to Stand: Supervision, Verbal Cues - Ambulation Level of Assistance: Supervision Distance (ft.): 120 Assistive Devices: Rolling Walker - Stair Negotiation Stairs: Level of Assistance: Verbal Cues, Contact Guard Number of Stairs: 11 Stairs: Assistive Devices: Left Handrail, Right Handrail - Standing Balance Static Stand: Supervision Dynamic Stand: Contact Guard Assist, Minimal Assistance Comment: w/ RW - Pain Management Techniques: Medication - Insight/Carryover Insight/Carryover: Fair - Patient/Family Education Comment: Adaptive equipment, spinal precautions, compensatory strategies, safety with walker mgmt, POC, d/c recommendations, energy conservation - Assessment/Plan Assessment: Pt is a 46 year old female s/p lami, pt educated on spinal precautions and use of AE to complete LE Dressing, as well as bedside commode and tub txfer bench, pt currently S with ADLs and ADL transfers. Recommend continued skilled OT services to maximize functional independence to return home. - Goals Timeframe: 2 weeks Goals: MOD I with ADL transfers. MOD I With ADLs. MOD I with basic IADLs - Provider License Number: [id number] Occupational Therapy - Arousal/Attention/Orientation Level of Consciousness: Awake, Alert Patient Orientation: Person, Place, Time, Appropriate to Age, Appropriate to Situation - ADL/IADL Self Feeding: Independent Grooming: Verbal Cues, Set-up Help Bathing-Upper Extremity: Supervision, Verbal Cues, Set-up Help Bathing-Lower Extremity: Minimal Assistance, Moderate Assistance Dressing-Upper Extremity: Minimal Assistance Dressing-Lower Extremity: Minimal Assistance - Sitting Balance Static Sitting: Supervision Dynamic Sitting: Contact Guard Assist - Transfers Wheelchair to Bed Transfers: Verbal Cues, Set-up Help, Contact Guard Toilet Transfers: Supervision, Verbal Cues, Set-up Help - Upper Extremity Status Right Upper Extremity Comment: ROM WFL Generalized weakness Left Upper Extremity Comment: ROM WFL Generalized weakness - Pain Alleviating Techniques: Medication - Insight/Carryover Insight/Carryover: Fair - Patient/Family Education Comment: Adaptive equipment, spinal precautions, compensatory strategies, safety with walker mgmt, POC, d/c recommendations, energy conservation - Assessment/Plan Assessment: Pt is a 46 year old female s/p lami, pt educated on spinal precautions and use of AE to complete LE Dressing, as well as bedside commode and tub txfer bench, pt currently S with ADLs and ADL transfers. Recommend continued skilled OT services to maximize functional independence to return home. - Goals Timeframe: 2 weeks Goals: MOD I with ADL transfers. MOD I With ADLs. MOD I with basic IADLs - Provider Therapist: Gwendolyn Tyson License Number: [id number] Speech Therapy - Plan Assessment: Pt is a 46 year old female s/p lami, pt educated on spinal precautions and use of AE to complete LE Dressing, as well as bedside commode and tub txfer bench, pt currently S with ADLs and ADL transfers. Recommend continued skilled OT services to maximize functional independence to return home. Recreational Therapy - Participation Participation: Monitors His/Her Own Leisure Time - Attendance Attendance: 3-5 times per week - Activities Leisure Activities: Television - Socialization Level of Socialization: Initiates/interacts freely with care givers and peer - Diversional Time Diversional Time: television, sleeping - Assessment Assessment/Plan: Pt is a 46 year old female s/p lami, pt educated on spinal precautions and use of AE to complete LE Dressing, as well as bedside commode and tub txfer bench, pt currently S with ADLs and ADL transfers. Recommend continued skilled OT services to maximize functional independence to return home. - Provider Therapist: Inez Cho, LOGISTICS [employer]AD #[id number] Nutrition - Current Diet Current Diet/ Supplement/ Feedings: Heart healthy - Appetite Percent Meal Consumed: 75-100% - Comments Comments: spinal precaution ,isolation precaution, handwashing safety fall medication teaching - Assessment/Goals/Time Frame Assessment/Goals/Time Frame: patient had loose bm and abdominal upst had 5x bm yesterday blood works with low potassium given [address] on contact precaution for c-diff untill specimen sent with the result - Provider Provider: Afia Han RD Case Management - Discharge Plan Discharge Plan: Home with significant other/family (September 29 Dc moniote bowels)
--- NOTE | 2016-09-19 13:11 | CP.PCM.PN ---
Subjective - Date & Time of Evaluation Date of Evaluation: 09/19/16 Time of Evaluation: 08:00 - Subjective Subjective: no acute complaints Objective - Vital Signs/Intake and Output Vital Signs (last 24 hours): Temp Pulse Resp BP Pulse Ox 97 F L 84 18 100/70 100 09/19/16 07:57 09/19/16 07:57 09/19/16 07:57 09/19/16 07:57 09/19/16 07:57 - Medications Medications: Current Medications Al Hydrox/Mg Hydrox/Simethicone (Maalox Plus 30 Ml) 30 ml PO TID PRN PRN Reason: Heartburn Last Admin: 09/16/16 20:36 Dose: 30 ml Amitriptyline HCl (Elavil) 10 mg PO DAILY [facility] Last Admin: 09/19/16 08:34 Dose: 10 mg Cyclobenzaprine HCl (Flexeril) 5 mg PO HS PRN PRN Reason: Muscle spasm Docusate Sodium (Colace) 100 mg PO BID [facility] Last Admin: 09/19/16 08:34 Dose: 100 mg Fentanyl (Duragesic) 1 patch TD Q3D@0900 [facility] Last Admin: 09/19/16 08:32 Dose: 1 patch Fluticasone Propionate (Flonase) 1 spr BEATRIS BID [facility] Last Admin: 09/19/16 12:18 Dose: Not Given Gabapentin (Neurontin) 600 mg PO [facility] Last Admin: 09/18/16 21:09 Dose: 600 mg Lactulose (Enulose) 20 gm PO DAILY PRN PRN Reason: Constipation Last Admin: 09/15/16 08:35 Dose: 20 gm Loratadine (Claritin) 10 mg PO DAILY [facility] Last Admin: 09/19/16 08:50 Dose: Not Given Nortriptyline HCl (Pamelor) 50 mg PO [facility] Last Admin: 09/18/16 21:09 Dose: 50 mg Oxycodone/Acetaminophen (Percocet 5/325 Mg Tab) 1 tab PO Q4 PRN PRN Reason: Pain, moderate (4-7) Stop: 09/20/16 17:43 Last Admin: 09/18/16 08:46 Dose: 1 tab Oxycodone/Acetaminophen (Percocet 5/325 Mg Tab) 2 tab PO Q4 PRN PRN Reason: Pain, severe (8-10) Stop: 09/20/16 17:43 Last Admin: 09/16/16 10:59 Dose: 2 tab Pantoprazole Sodium (Protonix Ec Tab) 40 mg PO DAILY [facility] Last Admin: 09/19/16 08:35 Dose: 40 mg Potassium Chloride (K-Dur 20 Meq Er Tab) 40 meq PO DAILY [facility] Last Admin: 09/19/16 08:35 Dose: 40 meq Sennosides (Senokot Tab) 8.6 mg PO HS [facility] Last Admin: 09/18/16 21:11 Dose: Not Given Sodium Chloride ([place] Nasal [place]) 1 sprays BEATRIS Q4 PRN PRN Reason: Nasal congestion Last Admin: 09/18/16 16:18 Dose: 1 spr Topiramate (Topamax) 100 mg PO BID [facility] Last Admin: 09/19/16 08:36 Dose: 100 mg Trimethoprim/Sulfamethoxazole (Bactrim Ds Tab) 1 tab PO Q12 [facility] Last Admin: 09/19/16 08:33 Dose: 1 tab - Labs Labs: 09/14/16 05:40 09/19/16 05:20 - Head Exam Head Exam: ATRAUMATIC, NORMAL INSPECTION, NORMOCEPHALIC - Eye Exam Eye Exam: EOMI, Normal appearance, PERRL Pupil Exam: NORMAL ACCOMODATION - ENT Exam ENT Exam: Mucous Membranes Moist, Normal Exam - Respiratory Exam Respiratory Exam: NORMAL BREATHING PATTERN - Cardiovascular Exam Cardiovascular Exam: REGULAR RHYTHM - GI/Abdominal Exam GI & Abdominal Exam: Normal Bowel Sounds - Rectal Exam Rectal Exam: NORMAL INSPECTION - Exam External exam: NORMAL EXTERNAL EXAM - Extremities Exam Extremities Exam: Full ROM - Back Exam Back Exam: NORMAL INSPECTION - Neurological Exam Neurological Exam: Alert, Awake - Psychiatric Exam Psychiatric exam: Normal Affect, Normal Mood Assessment and Plan (1) Chronic back pain Assessment & Plan: pt ot therpay covering for Dr duggan Status: Acute (2) Gait abnormality Status: Acute (3) Gastritis Status: Acute (4) Lumbar radiculopathy Status: Acute (5) Pharyngitis Status: Acute (6) S/P lumbar laminectomy Status: Acute (7) Tonsillitis Status: Acute
[2016-09-20] MEDS: Potassium Chloride 20 mEq ER Tab PO SCH ×2 (08:16→15:13)
[2016-09-20] MEDS: Tmp-Smz 800 mg-160 mg DS Tab PO SCH ×2 (08:18→21:00)
[2016-09-20] MEDS: Pantoprazole 40 mg EC Tab PO SCH (08:18)
[2016-09-20] MEDS ORDERED: Enoxaparin 30 mg Syringe SC SCH (10:15)
[2016-09-20] MEDS: Enoxaparin 40 mg Syringe SC SCH (15:12)
--- NOTE | 2016-09-20 17:27 | CP.PCM.PN ---
Subjective - Date & Time of Evaluation Date of Evaluation: 09/20/16 Time of Evaluation: 17:26 - Subjective Subjective: Patient seen in room doing very well with notable gains daily now doing 200' with SC improved stairs as well much relieved symptoms in the right leg some numbness in bilateral feet continue current care Objective - Vital Signs/Intake and Output Vital Signs (last 24 hours): Temp Pulse Resp BP Pulse Ox 97.8 F 89 20 110/60 98 09/20/16 10:00 09/20/16 10:00 09/20/16 10:00 09/20/16 10:00 09/20/16 10:00 - Medications Medications: Current Medications Al Hydrox/Mg Hydrox/Simethicone (Maalox Plus 30 Ml) 30 ml PO TID PRN PRN Reason: Heartburn Last Admin: 09/16/16 20:36 Dose: 30 ml Amitriptyline HCl (Elavil) 10 mg PO DAILY [facility] Last Admin: 09/20/16 08:18 Dose: 10 mg Cyclobenzaprine HCl (Flexeril) 5 mg PO HS PRN PRN Reason: Muscle spasm Docusate Sodium (Colace) 100 mg PO BID [facility] Last Admin: 09/20/16 16:43 Dose: 100 mg Enoxaparin Sodium (Lovenox) 40 mg SC DAILY [facility] PRN Reason: Protocol Last Admin: 09/20/16 15:12 Dose: 40 mg Fentanyl (Duragesic) 1 patch TD Q3D@0900 [facility] Last Admin: 09/19/16 08:32 Dose: 1 patch Fluticasone Propionate (Flonase) 1 spr BEATRIS BID [facility] Last Admin: 09/20/16 16:43 Dose: Not Given Gabapentin (Neurontin) 600 mg PO [facility] Last Admin: 09/19/16 21:05 Dose: 600 mg Lactulose (Enulose) 20 gm PO DAILY PRN PRN Reason: Constipation Last Admin: 09/15/16 08:35 Dose: 20 gm Loratadine (Claritin) 10 mg PO DAILY [facility] Last Admin: 09/20/16 08:20 Dose: Not Given Nortriptyline HCl (Pamelor) 50 mg PO [facility] Last Admin: 09/19/16 21:05 Dose: 50 mg Oxycodone/Acetaminophen (Percocet 5/325 Mg Tab) 1 tab PO Q4 PRN PRN Reason: Pain, moderate (4-7) Stop: 09/20/16 17:43 Last Admin: 09/18/16 08:46 Dose: 1 tab Oxycodone/Acetaminophen (Percocet 5/325 Mg Tab) 2 tab PO Q4 PRN PRN Reason: Pain, severe (8-10) Stop: 09/20/16 17:43 Last Admin: 09/16/16 10:59 Dose: 2 tab Pantoprazole Sodium (Protonix Ec Tab) 40 mg PO DAILY [facility] Last Admin: 09/20/16 08:18 Dose: 40 mg Potassium Chloride (K-Dur 20 Meq Er Tab) 20 meq PO DAILY [facility] Last Admin: 09/20/16 15:13 Dose: 20 meq Sennosides (Senokot Tab) 8.6 mg PO HS [facility] Last Admin: 09/19/16 21:11 Dose: Not Given Sodium Chloride ([place] Nasal [place]) 1 sprays BEATRIS Q4 PRN PRN Reason: Nasal congestion Last Admin: 09/18/16 16:18 Dose: 1 spr Topiramate (Topamax) 100 mg PO BID [facility] Last Admin: 09/20/16 16:43 Dose: 100 mg Trimethoprim/Sulfamethoxazole (Bactrim Ds Tab) 1 tab PO Q12 [facility] Last Admin: 09/20/16 08:18 Dose: 1 tab - Labs Labs: 09/14/16 05:40 09/19/16 05:20
[2016-09-21 07:17] LABS: HEMOGLOBIN 12.2 g/dL (12.0-16.0); MEAN CELL VOLUME 88.2 fl (81.0-99.0); MEAN CORPUSCULAR HGB CONC 35.1 g/dL (33.0-37.0); RBC 3.96 Mil/uL (3.80-5.20); WHITE BLOOD COUNT 4.9 K/uL (4.8-10.8)
[2016-09-21] MEDS: Pantoprazole 40 mg EC Tab PO SCH (08:25)
[2016-09-21] MEDS: LINZESS 145 MCG PO SCH (08:25)
[2016-09-21] MEDS: Potassium Chloride 20 mEq ER Tab PO SCH (08:26)
[2016-09-21] MEDS: Enoxaparin 40 mg Syringe SC SCH (08:26)
[2016-09-21] MEDS: Tmp-Smz 800 mg-160 mg DS Tab PO SCH ×2 (08:27→21:09)
--- NOTE | 2016-09-21 17:15 | CP.PCM.PN ---
Subjective - Date & Time of Evaluation Date of Evaluation: 09/21/16 Time of Evaluation: 17:14 - Subjective Subjective: Patient seen in room sitting up very vibrant and in NAD ambulated 300' today with a SC marked gains excellent benefit with therapies Objective - Vital Signs/Intake and Output Vital Signs (last 24 hours): Temp Pulse Resp BP Pulse Ox 98 F 78 20 120/70 98 09/21/16 08:16 09/21/16 08:16 09/21/16 08:16 09/21/16 08:16 09/21/16 08:16 - Medications Medications: Current Medications Al Hydrox/Mg Hydrox/Simethicone (Maalox Plus 30 Ml) 30 ml PO TID PRN PRN Reason: Heartburn Last Admin: 09/16/16 20:36 Dose: 30 ml Amitriptyline HCl (Elavil) 10 mg PO DAILY [facility] Last Admin: 09/21/16 08:27 Dose: 10 mg Cyclobenzaprine HCl (Flexeril) 5 mg PO HS PRN PRN Reason: Muscle spasm Docusate Sodium (Colace) 100 mg PO BID [facility] Last Admin: 09/21/16 16:38 Dose: 100 mg Enoxaparin Sodium (Lovenox) 40 mg SC DAILY [facility] PRN Reason: Protocol Last Admin: 09/21/16 08:26 Dose: 40 mg Fluticasone Propionate (Flonase) 1 spr BEATRIS BID [facility] Last Admin: 09/21/16 16:38 Dose: Not Given Gabapentin (Neurontin) 600 mg PO HS [facility] Last Admin: 09/20/16 21:02 Dose: 600 mg Home Med (Patient's Own Medication) 145 unit PO DAILY@0730 [facility] Last Admin: 09/21/16 08:25 Dose: 145 unit Lactulose (Enulose) 20 gm PO DAILY PRN PRN Reason: Constipation Last Admin: 09/15/16 08:35 Dose: 20 gm Loratadine (Claritin) 10 mg PO DAILY [facility] Last Admin: 09/21/16 08:28 Dose: 10 mg Nortriptyline HCl (Pamelor) 50 mg PO HS [facility] Last Admin: 09/20/16 21:38 Dose: 50 mg Pantoprazole Sodium (Protonix Ec Tab) 40 mg PO DAILY [facility] Last Admin: 09/21/16 08:25 Dose: 40 mg Potassium Chloride (K-Dur 20 Meq Er Tab) 20 meq PO DAILY [facility] Last Admin: 09/21/16 08:26 Dose: 20 meq Sennosides (Senokot Tab) 8.6 mg PO HS [facility] Last Admin: 09/20/16 21:41 Dose: Not Given Sodium Chloride ([place] Nasal [place]) 1 sprays BEATRIS Q4 PRN PRN Reason: Nasal congestion Last Admin: 09/18/16 16:18 Dose: 1 spr Topiramate (Topamax) 100 mg PO BID [facility] Last Admin: 09/21/16 16:39 Dose: 100 mg Trimethoprim/Sulfamethoxazole (Bactrim Ds Tab) 1 tab PO Q12 [facility] Last Admin: 09/21/16 08:27 Dose: 1 tab - Labs Labs: 09/21/16 06:10 09/19/16 05:20
[2016-09-22] MEDS: Enoxaparin 40 mg Syringe SC SCH (08:03)
[2016-09-22] MEDS: Pantoprazole 40 mg EC Tab PO SCH (08:03)
[2016-09-22] MEDS: Potassium Chloride 20 mEq ER Tab PO SCH (08:04)
[2016-09-22] MEDS: LINZESS 145 MCG PO SCH (08:08)
[2016-09-22] MEDS ORDERED: Tmp-Smz 800 mg-160 mg DS Tab ONE (09:00)
[2016-09-22] MEDS: Tmp-Smz 800 mg-160 mg DS Tab PO SCH ×2 (10:06→21:04)
[2016-09-23] MEDS: LINZESS 145 MCG PO SCH (07:29)
[2016-09-23] MEDS: Enoxaparin 40 mg Syringe SC SCH (08:44)
[2016-09-23] MEDS: Pantoprazole 40 mg EC Tab PO SCH (08:45)
[2016-09-23] MEDS: Potassium Chloride 20 mEq ER Tab PO SCH (08:45)
[2016-09-23] MEDS: Tmp-Smz 800 mg-160 mg DS Tab PO SCH (08:45)
[2016-09-24] MEDS: LINZESS 145 MCG PO SCH (07:08)
[2016-09-24 07:33] LABS: HEMOGLOBIN 12.5 g/dL (12.0-16.0); MEAN CELL VOLUME 88.5 fl (81.0-99.0); MEAN CORPUSCULAR HEMOGLOBIN 31.3 pg (27.0-31.0); MEAN CORPUSCULAR HGB CONC 35.4 g/dL (33.0-37.0); RED CELL DISTRIBUTION WIDTH 12.9 % (11.5-14.5); WHITE BLOOD COUNT 4.9 K/uL (4.8-10.8)
[2016-09-24] MEDS: Enoxaparin 40 mg Syringe SC SCH (08:30)
[2016-09-24] MEDS: Pantoprazole 40 mg EC Tab PO SCH (08:31)
[2016-09-24] MEDS: Potassium Chloride 20 mEq ER Tab PO SCH (08:32)
--- NOTE | 2016-09-24 15:22 | CP.PCM.PN ---
Subjective - Date & Time of Evaluation Date of Evaluation: 09/24/16 Time of Evaluation: 15:21 - Subjective Subjective: Patient seen in PT doing very well increased to balancing and advanced gait cash CDI will d/c in 2 days pain is very well controlled not taking any medications continue current care Objective - Vital Signs/Intake and Output Vital Signs (last 24 hours): Temp Pulse Resp BP Pulse Ox 96.6 F L 74 20 119/64 99 09/24/16 09:33 09/24/16 09:33 09/24/16 09:33 09/24/16 09:33 09/24/16 09:33 - Medications Medications: Current Medications Al Hydrox/Mg Hydrox/Simethicone (Maalox Plus 30 Ml) 30 ml PO TID PRN PRN Reason: Heartburn Last Admin: 09/16/16 20:36 Dose: 30 ml Amitriptyline HCl (Elavil) 10 mg PO DAILY [facility] Last Admin: 09/24/16 08:51 Dose: Not Given Cyclobenzaprine HCl (Flexeril) 5 mg PO HS PRN PRN Reason: Muscle spasm Docusate Sodium (Colace) 100 mg PO BID PRN PRN Reason: Constipation Enoxaparin Sodium (Lovenox) 40 mg SC DAILY [facility] PRN Reason: Protocol Last Admin: 09/24/16 08:30 Dose: 40 mg Fentanyl (Duragesic) 1 patch TD Q3D [facility] PRN Reason: Protocol Last Admin: 09/22/16 10:05 Dose: 1 patch Fluticasone Propionate (Flonase) 1 spr BEATRIS BID [facility] Last Admin: 09/24/16 08:30 Dose: 1 spr Gabapentin (Neurontin) 600 mg PO [facility] Last Admin: 09/23/16 21:13 Dose: 600 mg Home Med (Patient's Own Medication) 145 unit PO DAILY@0730 [facility] Last Admin: 09/24/16 07:08 Dose: 145 unit Lactulose (Enulose) 20 gm PO DAILY PRN PRN Reason: Constipation Last Admin: 09/23/16 16:26 Dose: 20 gm Loratadine (Claritin) 10 mg PO DAILY [facility] Last Admin: 09/24/16 08:52 Dose: Not Given Nortriptyline HCl (Pamelor) 50 mg PO [facility] Last Admin: 09/23/16 21:13 Dose: 50 mg Pantoprazole Sodium (Protonix Ec Tab) 40 mg PO DAILY [facility] Last Admin: 09/24/16 08:31 Dose: 40 mg Potassium Chloride (K-Dur 20 Meq Er Tab) 20 meq PO DAILY [facility] Last Admin: 09/24/16 08:32 Dose: 20 meq Sennosides (Senokot Tab) 8.6 mg PO HS PRN PRN Reason: Constipation Sodium Chloride ([place] Nasal [place]) 1 sprays BEATRIS Q4 PRN PRN Reason: Nasal congestion Last Admin: 09/18/16 16:18 Dose: 1 spr Topiramate (Topamax) 100 mg PO BID [facility] Last Admin: 09/24/16 08:32 Dose: 100 mg - Labs Labs: 09/24/16 06:30 09/19/16 05:20
[2016-09-24] MEDS: LINZESS 145 MG PO SCH ×3 (21:44→21:48)
[2016-09-25] MEDS: LINZESS 145 MG PO SCH ×2 (08:19→21:10)
[2016-09-25] MEDS: Potassium Chloride 20 mEq ER Tab PO SCH (08:20)
[2016-09-25] MEDS: Enoxaparin 40 mg Syringe SC SCH (08:20)
[2016-09-25] MEDS: Pantoprazole 40 mg EC Tab PO SCH (08:21)
[2016-09-26] MEDS: Potassium Chloride 20 mEq ER Tab PO SCH (08:19)
[2016-09-26] MEDS: Enoxaparin 40 mg Syringe SC SCH (08:20)
[2016-09-26] MEDS: LINZESS 145 MG PO SCH ×2 (08:20→21:06)
[2016-09-26] MEDS: Pantoprazole 40 mg EC Tab PO SCH (08:21)
--- NOTE | 2016-09-26 17:33 | PSY.TMCNF ---
Nursing - Vital Signs Pain: 0 - Precautions: Precautions: Fall Prevention - Medications/Other Issues Comment: spinal precautions - Consults Comment: Dr. Fox, Dr. Vela - Skin Incision Site: lower back Dressing Status: Clean, Dry, Intact Incision: Healing Well, Solitario Intact Incision Line Treatment: solitario to lower back, dressing clean /dry/intact - Wound Lower Back Wound Type: Incision Tunneling: No Undermining: No Wound Drainage Amount: None Wound General Appearance: Clean/Dry Wound Dressing Status: Changed Dressing Changed: Yes Wound Packing Type: Not applicable Wound Primary Dressing Type: Gauze Pads - Toileting Toileting: Modified Independent - Bladder Management Bladder Pattern: Normal Voiding Method: Toilet Bladder Management: Modified Independent - Bowel Management Bowel Pattern: Normal Comment: LBM: 09/25/16 Bowel Management: Modified Independent - Transfers Transfers: Modified Independent - ADL's ADL's: Modified Independent - Pain Management Comments: scheduled fentanyl patch, gabapentin q HS - Patient/Family Teaching Comments: med teaching, pain management, spinal precautions, incisional care - Goals/Time Frame Comments: as per multidiciplinary plan of care Physical Therapy - Bed Mobility Bed Mobility: Modified Independent - Transfers Sit to Stand: Modified Independent - Ambulation Level of Assistance: Independent, Modified Independent Distance (ft.): 500 Assistive Devices: N/A, Single point cane - Stair Negotiation Stairs: Level of Assistance: Independent Number of Stairs: 22 Stairs: Assistive Devices: Right Handrail, Single point cane - Standing Balance Static Stand: Modified [place] with assistive device Dynamic Stand: Supervision - Pain Management Techniques: Medication, Distraction - Insight/Carryover Insight/Carryover: Good - Patient/Family Education Comment: Spinal precautions, Safety, DME/AE, compensatory strategies, IADLs and ADL training. pt with good carryover - Assessment/Plan Assessment: Pt meeting all OT goals, ready for planned discharge tomorrow, pt is MOD I with ADLs, ADL transfers and basic IADLs. Recommended tub bench, hip kit and bed side commode for d/c. - Goals Timeframe: 1 session Goals: all goals met - Provider License Number: [id number] Occupational Therapy - Arousal/Attention/Orientation Level of Consciousness: Awake, Alert Patient Orientation: Person, Place, Time, Appropriate to Age, Appropriate to Situation - ADL/IADL Self Feeding: Independent Grooming: Independent Bathing-Upper Extremity: Modified Independent Bathing-Lower Extremity: Modified Independent Dressing-Upper Extremity: Modified Independent Dressing-Lower Extremity: Modified Independent Homemaking: Modified Independent - Sitting Balance Static Sitting: Independent without upper extremity support Dynamic Sitting: Reaches across midline, Reaches out of base of support, Reaches within base of support - Transfers Wheelchair to Bed Transfers: Modified Independent Toilet Transfers: Modified Independent Tub Transfers: Modified Independent - Wheelchair Management Level of Assistance: Not Applicable - Upper Extremity Status Right Upper Extremity Comment: ROM/MMT WFL Left Upper Extremity Comment: ROM/MMT WFL - Pain Alleviating Techniques: Medication, Distraction - Insight/Carryover Insight/Carryover: Good - Patient/Family Education Comment: Spinal precautions, Safety, DME/AE, compensatory strategies, IADLs and ADL training. pt with good carryover - Assessment/Plan Assessment: Pt meeting all OT goals, ready for planned discharge tomorrow, pt is MOD I with ADLs, ADL transfers and basic IADLs. Recommended tub bench, hip kit and bed side commode for d/c. - Goals Timeframe: 1 session Goals: all goals met - Provider Therapist: Gwendolyn Tyson Speech Therapy - Plan Assessment: Pt meeting all OT goals, ready for planned discharge tomorrow, pt is MOD I with ADLs, ADL transfers and basic IADLs. Recommended tub bench, hip kit and bed side commode for d/c. Recreational Therapy - Participation Participation: Monitors His/Her Own Leisure Time - Attendance Attendance: 3-5 times per week - Activities Leisure Activities: Television - Socialization Level of Socialization: Initiates/interacts freely with care givers and peer - Diversional Time Diversional Time: television, sleeping - Assessment Assessment/Plan: Pt meeting all OT goals, ready for planned discharge tomorrow, pt is MOD I with ADLs, ADL transfers and basic IADLs. Recommended tub bench, hip kit and bed side commode for d/c. - Provider Therapist: Inez Cho, [employer]PA[employer] #[id number] Nutrition - Current Diet Current Diet/ Supplement/ Feedings: Heart healthy - Appetite Percent Meal Consumed: 75-100% - Comments Comments: med teaching, pain management, spinal precautions, incisional care - Assessment/Goals/Time Frame Assessment/Goals/Time Frame: spinal precautions - Provider Provider: Maura Ordaz MS, RD Case Management - Psychosocial Assessment Support Systems: Enzo Denis- [phone] Psychological Interventions/Needs: Patient is alert and oriented x3 and able to verbalize needs. Patient is primarily Malay speaking and translation completed via certified Malay speaking maintenance department manager Luz Maria Ortiz Discharge Concerns: Patient with approx. 40+ steps to negotiate at home Patient/Family Meeting: CM met with patient and rehab team Intervention/Goal/Outcome:: 1. Goal: Mod I overall. 2. Plan: Home with outpatient PT. 3. DME needs- SPC and commode to be delivered from [facility]. 4. f/u appt with surgeon Dr. Fox. 5. continued emotional support. 7. Tentative discharge date: 09/27/2016 - Discharge Plan Discharge Plan: Outpatient rehab - Provider Provider: BRENDA Swain, HELMINTHOLOGIST License Number: [id number] Rehabilitation Plan - Treatment Plan Treatment Plan: Physical Therapy, Occupational Therapy, Wound Care - Discharge Plan Estimated Date of Discharge: 09/27/16 Discharge to: Home
--- NOTE | 2016-09-26 17:34 | CP.PCM.PN ---
Subjective - Date & Time of Evaluation Date of Evaluation: 09/26/16 Time of Evaluation: 17:33 - Subjective Subjective: Patient seen in room discussed at length d/c for tomorrow I cleaned and prepped the lumbar incision and removed the cash without issue applied steristrips ambulating independently with SC no pain issues Objective - Vital Signs/Intake and Output Vital Signs (last 24 hours): Temp Pulse Resp BP Pulse Ox 97.9 F 68 18 91/51 L 97 09/26/16 09:27 09/26/16 09:27 09/26/16 09:27 09/26/16 09:27 09/25/16 21:18 - Medications Medications: Current Medications Al Hydrox/Mg Hydrox/Simethicone (Maalox Plus 30 Ml) 30 ml PO TID PRN PRN Reason: Heartburn Last Admin: 09/16/16 20:36 Dose: 30 ml Amitriptyline HCl (Elavil) 10 mg PO HS [facility] Last Admin: 09/25/16 21:08 Dose: 10 mg Cyclobenzaprine HCl (Flexeril) 5 mg PO HS PRN PRN Reason: Muscle spasm Docusate Sodium (Colace) 100 mg PO BID PRN PRN Reason: Constipation Last Admin: 09/25/16 08:19 Dose: 100 mg Enoxaparin Sodium (Lovenox) 40 mg SC DAILY [facility] PRN Reason: Protocol Last Admin: 09/26/16 08:20 Dose: 40 mg Fentanyl (Duragesic) 1 patch TD Q3D [facility] PRN Reason: Protocol Last Admin: 09/25/16 09:14 Dose: 1 patch Fluticasone Propionate (Flonase) 1 spr BEATRIS BID [facility] Last Admin: 09/26/16 16:39 Dose: 1 spr Gabapentin (Neurontin) 600 mg PO HS [facility] Last Admin: 09/25/16 21:07 Dose: 600 mg Gabapentin (Neurontin) 300 mg PO DAILY [facility] Last Admin: 09/26/16 12:01 Dose: 300 mg Home Med (Linzess) 145 mg PO 0730,2100 [facility] Last Admin: 09/26/16 08:20 Dose: 145 mg Lactulose (Enulose) 20 gm PO DAILY PRN PRN Reason: Constipation Last Admin: 09/23/16 16:26 Dose: 20 gm Loratadine (Claritin) 10 mg PO DAILY PRN PRN Reason: Congestion Nortriptyline HCl (Pamelor) 50 mg PO HS [facility] Last Admin: 09/25/16 21:07 Dose: 50 mg Pantoprazole Sodium (Protonix Ec Tab) 40 mg PO DAILY [facility] Last Admin: 09/26/16 08:21 Dose: 40 mg Potassium Chloride (K-Dur 20 Meq Er Tab) 20 meq PO DAILY [facility] Last Admin: 09/26/16 08:19 Dose: 20 meq Sennosides (Senokot Tab) 8.6 mg PO HS PRN PRN Reason: Constipation Sodium Chloride ([place] Nasal [place]) 1 sprays BEATRIS Q4 PRN PRN Reason: Nasal congestion Last Admin: 09/18/16 16:18 Dose: 1 spr Topiramate (Topamax) 100 mg PO DAILY [facility] - Labs Labs: 09/24/16 06:30 09/19/16 05:20
[2016-09-26 20:38] VITALS: RESP 20
[2016-09-27 07:56] VITALS: BP 113/73; PULSE 72; TEMP 97.6; O2SAT 98
[2016-09-27] MEDS: LINZESS 145 MG PO SCH (08:00)
[2016-09-27] MEDS: Enoxaparin 40 mg Syringe SC SCH (08:13)
[2016-09-27] MEDS: Potassium Chloride 20 mEq ER Tab PO SCH (08:13)
[2016-09-27] MEDS: Pantoprazole 40 mg EC Tab PO SCH (08:13)
--- NOTE | 2016-09-27 08:53 | CP.PCM.PN ---
Subjective - Date & Time of Evaluation Date of Evaluation: 09/20/16 Time of Evaluation: 09:00 - Subjective Subjective: Patient still has a lot of pain Has no chest pain or SOB Doing better with phys therapy. Objective - Vital Signs/Intake and Output Vital Signs (last 24 hours): Temp Pulse Resp BP Pulse Ox 97.6 F 72 20 113/73 98 09/27/16 07:55 09/27/16 07:55 09/27/16 07:55 09/27/16 07:55 09/27/16 07:55 - Medications Medications: Current Medications Al Hydrox/Mg Hydrox/Simethicone (Maalox Plus 30 Ml) 30 ml PO TID PRN PRN Reason: Heartburn Last Admin: 09/16/16 20:36 Dose: 30 ml Amitriptyline HCl (Elavil) 10 mg PO [facility] Last Admin: 09/26/16 21:05 Dose: 10 mg Cyclobenzaprine HCl (Flexeril) 5 mg PO HS PRN PRN Reason: Muscle spasm Docusate Sodium (Colace) 100 mg PO BID PRN PRN Reason: Constipation Last Admin: 09/25/16 08:19 Dose: 100 mg Enoxaparin Sodium (Lovenox) 40 mg SC DAILY [facility] PRN Reason: Protocol Last Admin: 09/27/16 08:13 Dose: 40 mg Fentanyl (Duragesic) 1 patch TD Q3D [facility] PRN Reason: Protocol Last Admin: 09/25/16 09:14 Dose: 1 patch Fluticasone Propionate (Flonase) 1 spr BEATRIS BID [facility] Last Admin: 09/27/16 08:12 Dose: 1 spr Gabapentin (Neurontin) 600 mg PO HS [facility] Last Admin: 09/26/16 21:05 Dose: 600 mg Gabapentin (Neurontin) 300 mg PO DAILY [facility] Last Admin: 09/27/16 08:15 Dose: 300 mg Home Med (Linzess) 145 mg PO 0730,2100 [facility] Last Admin: 09/27/16 08:00 Dose: 145 mg Lactulose (Enulose) 20 gm PO DAILY PRN PRN Reason: Constipation Last Admin: 09/23/16 16:26 Dose: 20 gm Loratadine (Claritin) 10 mg PO DAILY PRN PRN Reason: Congestion Nortriptyline HCl (Pamelor) 50 mg PO [facility] Last Admin: 09/26/16 21:06 Dose: 50 mg Pantoprazole Sodium (Protonix Ec Tab) 40 mg PO DAILY [facility] Last Admin: 09/27/16 08:13 Dose: 40 mg Potassium Chloride (K-Dur 20 Meq Er Tab) 20 meq PO DAILY [facility] Last Admin: 09/27/16 08:13 Dose: 20 meq Sennosides (Senokot Tab) 8.6 mg PO HS PRN PRN Reason: Constipation Sodium Chloride ([place] Nasal [place]) 1 sprays BEATRIS Q4 PRN PRN Reason: Nasal congestion Last Admin: 09/18/16 16:18 Dose: 1 spr Topiramate (Topamax) 100 mg PO DAILY [facility] Last Admin: 09/27/16 08:13 Dose: 100 mg - Labs Labs: 09/24/16 06:30 09/19/16 05:20 - Head Exam Head Exam: NORMAL INSPECTION - Eye Exam Eye Exam: Normal appearance - ENT Exam ENT Exam: Mucous Membranes Moist - Respiratory Exam Respiratory Exam: Clear to Ausculation Bilateral - Cardiovascular Exam Cardiovascular Exam: REGULAR RHYTHM - GI/Abdominal Exam GI & Abdominal Exam: Normal Bowel Sounds - Psychiatric Exam Psychiatric exam: Anxious - Skin Skin Exam: Intact Assessment and Plan (1) Gait abnormality Status: Acute (2) S/P lumbar laminectomy Status: Acute (3) Chronic back pain Status: Acute (4) Lumbar radiculopathy Status: Acute - Assessment and Plan (Free Text) Plan: cont meds cont tx cont PT pain meds stool softener.
--- NOTE | 2016-09-27 08:55 | CP.PCM.PN ---
Subjective - Date & Time of Evaluation Date of Evaluation: 09/21/16 Time of Evaluation: 10:00 - Subjective Subjective: Patient remains stable Has minimal pain in the lower back Has no chest pain or SOB afebrile. Objective - Vital Signs/Intake and Output Vital Signs (last 24 hours): Temp Pulse Resp BP Pulse Ox 97.6 F 72 20 113/73 98 09/27/16 07:55 09/27/16 07:55 09/27/16 07:55 09/27/16 07:55 09/27/16 07:55 - Medications Medications: Current Medications Al Hydrox/Mg Hydrox/Simethicone (Maalox Plus 30 Ml) 30 ml PO TID PRN PRN Reason: Heartburn Last Admin: 09/16/16 20:36 Dose: 30 ml Amitriptyline HCl (Elavil) 10 mg PO [facility] Last Admin: 09/26/16 21:05 Dose: 10 mg Cyclobenzaprine HCl (Flexeril) 5 mg PO HS PRN PRN Reason: Muscle spasm Docusate Sodium (Colace) 100 mg PO BID PRN PRN Reason: Constipation Last Admin: 09/25/16 08:19 Dose: 100 mg Enoxaparin Sodium (Lovenox) 40 mg SC DAILY [facility] PRN Reason: Protocol Last Admin: 09/27/16 08:13 Dose: 40 mg Fentanyl (Duragesic) 1 patch TD Q3D [facility] PRN Reason: Protocol Last Admin: 09/25/16 09:14 Dose: 1 patch Fluticasone Propionate (Flonase) 1 spr BEATRIS BID [facility] Last Admin: 09/27/16 08:12 Dose: 1 spr Gabapentin (Neurontin) 600 mg PO HS [facility] Last Admin: 09/26/16 21:05 Dose: 600 mg Gabapentin (Neurontin) 300 mg PO DAILY [facility] Last Admin: 09/27/16 08:15 Dose: 300 mg Home Med (Linzess) 145 mg PO 0730,2100 [facility] Last Admin: 09/27/16 08:00 Dose: 145 mg Lactulose (Enulose) 20 gm PO DAILY PRN PRN Reason: Constipation Last Admin: 09/23/16 16:26 Dose: 20 gm Loratadine (Claritin) 10 mg PO DAILY PRN PRN Reason: Congestion Nortriptyline HCl (Pamelor) 50 mg PO [facility] Last Admin: 09/26/16 21:06 Dose: 50 mg Pantoprazole Sodium (Protonix Ec Tab) 40 mg PO DAILY [facility] Last Admin: 09/27/16 08:13 Dose: 40 mg Potassium Chloride (K-Dur 20 Meq Er Tab) 20 meq PO DAILY [facility] Last Admin: 09/27/16 08:13 Dose: 20 meq Sennosides (Senokot Tab) 8.6 mg PO HS PRN PRN Reason: Constipation Sodium Chloride ([place] Nasal [place]) 1 sprays BEATRIS Q4 PRN PRN Reason: Nasal congestion Last Admin: 09/18/16 16:18 Dose: 1 spr Topiramate (Topamax) 100 mg PO DAILY [facility] Last Admin: 09/27/16 08:13 Dose: 100 mg - Labs Labs: 09/24/16 06:30 09/19/16 05:20 - Head Exam Head Exam: NORMAL INSPECTION - Eye Exam Eye Exam: Normal appearance - ENT Exam ENT Exam: Mucous Membranes Moist - Respiratory Exam Respiratory Exam: Clear to Ausculation Bilateral - Cardiovascular Exam Cardiovascular Exam: REGULAR RHYTHM - GI/Abdominal Exam GI & Abdominal Exam: Normal Bowel Sounds - Neurological Exam Neurological Exam: CN II-XII Intact, Oriented x3 Assessment and Plan (1) Gait abnormality Status: Acute (2) S/P lumbar laminectomy Status: Acute (3) Chronic back pain Status: Acute (4) Lumbar radiculopathy Status: Acute - Assessment and Plan (Free Text) Plan: Cont meds Cont tx Cont PT pain meds encouraged more ambulation
--- NOTE | 2016-09-27 08:57 | CP.PCM.PN ---
Subjective - Date & Time of Evaluation Date of Evaluation: 09/22/16 Time of Evaluation: 10:00 - Subjective Subjective: Patient is doing a lot better with ambulation Still with some pain in the lower back but less Has no fever Has normal bm Objective - Vital Signs/Intake and Output Vital Signs (last 24 hours): Temp Pulse Resp BP Pulse Ox 97.6 F 72 20 113/73 98 09/27/16 07:55 09/27/16 07:55 09/27/16 07:55 09/27/16 07:55 09/27/16 07:55 - Medications Medications: Current Medications Al Hydrox/Mg Hydrox/Simethicone (Maalox Plus 30 Ml) 30 ml PO TID PRN PRN Reason: Heartburn Last Admin: 09/16/16 20:36 Dose: 30 ml Amitriptyline HCl (Elavil) 10 mg PO HS [facility] Last Admin: 09/26/16 21:05 Dose: 10 mg Cyclobenzaprine HCl (Flexeril) 5 mg PO HS PRN PRN Reason: Muscle spasm Docusate Sodium (Colace) 100 mg PO BID PRN PRN Reason: Constipation Last Admin: 09/25/16 08:19 Dose: 100 mg Enoxaparin Sodium (Lovenox) 40 mg SC DAILY [facility] PRN Reason: Protocol Last Admin: 09/27/16 08:13 Dose: 40 mg Fentanyl (Duragesic) 1 patch TD Q3D [facility] PRN Reason: Protocol Last Admin: 09/25/16 09:14 Dose: 1 patch Fluticasone Propionate (Flonase) 1 spr BEATRIS BID [facility] Last Admin: 09/27/16 08:12 Dose: 1 spr Gabapentin (Neurontin) 600 mg PO HS [facility] Last Admin: 09/26/16 21:05 Dose: 600 mg Gabapentin (Neurontin) 300 mg PO DAILY [facility] Last Admin: 09/27/16 08:15 Dose: 300 mg Home Med (Linzess) 145 mg PO 0730,2100 [facility] Last Admin: 09/27/16 08:00 Dose: 145 mg Lactulose (Enulose) 20 gm PO DAILY PRN PRN Reason: Constipation Last Admin: 09/23/16 16:26 Dose: 20 gm Loratadine (Claritin) 10 mg PO DAILY PRN PRN Reason: Congestion Nortriptyline HCl (Pamelor) 50 mg PO HS [facility] Last Admin: 09/26/16 21:06 Dose: 50 mg Pantoprazole Sodium (Protonix Ec Tab) 40 mg PO DAILY [facility] Last Admin: 09/27/16 08:13 Dose: 40 mg Potassium Chloride (K-Dur 20 Meq Er Tab) 20 meq PO DAILY [facility] Last Admin: 09/27/16 08:13 Dose: 20 meq Sennosides (Senokot Tab) 8.6 mg PO HS PRN PRN Reason: Constipation Sodium Chloride ([place] Nasal [place]) 1 sprays BEATRIS Q4 PRN PRN Reason: Nasal congestion Last Admin: 09/18/16 16:18 Dose: 1 spr Topiramate (Topamax) 100 mg PO DAILY [facility] Last Admin: 09/27/16 08:13 Dose: 100 mg - Labs Labs: 09/24/16 06:30 09/19/16 05:20 - Head Exam Head Exam: NORMAL INSPECTION - Eye Exam Eye Exam: Normal appearance - ENT Exam ENT Exam: Mucous Membranes Moist - Respiratory Exam Respiratory Exam: Clear to Ausculation Bilateral - Cardiovascular Exam Cardiovascular Exam: REGULAR RHYTHM - GI/Abdominal Exam GI & Abdominal Exam: Normal Bowel Sounds - Neurological Exam Neurological Exam: Awake, Oriented x3 - Psychiatric Exam Psychiatric exam: Normal Mood Assessment and Plan (1) Gait abnormality Status: Acute (2) S/P lumbar laminectomy Status: Acute (3) Chronic back pain Status: Acute (4) Lumbar radiculopathy Status: Acute - Assessment and Plan (Free Text) Plan: Cont meds Cont tx Cont PT pain meds
--- NOTE | 2016-09-27 08:58 | CP.PCM.PN ---
Subjective - Date & Time of Evaluation Date of Evaluation: 09/23/16 Time of Evaluation: 09:00 - Subjective Subjective: Patient is stable Has no back pain Has normal bm Objective - Vital Signs/Intake and Output Vital Signs (last 24 hours): Temp Pulse Resp BP Pulse Ox 97.6 F 72 20 113/73 98 09/27/16 07:55 09/27/16 07:55 09/27/16 07:55 09/27/16 07:55 09/27/16 07:55 - Medications Medications: Current Medications Al Hydrox/Mg Hydrox/Simethicone (Maalox Plus 30 Ml) 30 ml PO TID PRN PRN Reason: Heartburn Last Admin: 09/16/16 20:36 Dose: 30 ml Amitriptyline HCl (Elavil) 10 mg PO HS [facility] Last Admin: 09/26/16 21:05 Dose: 10 mg Cyclobenzaprine HCl (Flexeril) 5 mg PO HS PRN PRN Reason: Muscle spasm Docusate Sodium (Colace) 100 mg PO BID PRN PRN Reason: Constipation Last Admin: 09/25/16 08:19 Dose: 100 mg Enoxaparin Sodium (Lovenox) 40 mg SC DAILY [facility] PRN Reason: Protocol Last Admin: 09/27/16 08:13 Dose: 40 mg Fentanyl (Duragesic) 1 patch TD Q3D [facility] PRN Reason: Protocol Last Admin: 09/25/16 09:14 Dose: 1 patch Fluticasone Propionate (Flonase) 1 spr BEATRIS BID [facility] Last Admin: 09/27/16 08:12 Dose: 1 spr Gabapentin (Neurontin) 600 mg PO HS [facility] Last Admin: 09/26/16 21:05 Dose: 600 mg Gabapentin (Neurontin) 300 mg PO DAILY [facility] Last Admin: 09/27/16 08:15 Dose: 300 mg Home Med (Linzess) 145 mg PO 0730,2100 [facility] Last Admin: 09/27/16 08:00 Dose: 145 mg Lactulose (Enulose) 20 gm PO DAILY PRN PRN Reason: Constipation Last Admin: 09/23/16 16:26 Dose: 20 gm Loratadine (Claritin) 10 mg PO DAILY PRN PRN Reason: Congestion Nortriptyline HCl (Pamelor) 50 mg PO HS [facility] Last Admin: 09/26/16 21:06 Dose: 50 mg Pantoprazole Sodium (Protonix Ec Tab) 40 mg PO DAILY [facility] Last Admin: 09/27/16 08:13 Dose: 40 mg Potassium Chloride (K-Dur 20 Meq Er Tab) 20 meq PO DAILY [facility] Last Admin: 09/27/16 08:13 Dose: 20 meq Sennosides (Senokot Tab) 8.6 mg PO HS PRN PRN Reason: Constipation Sodium Chloride ([place] Nasal [place]) 1 sprays BEATRIS Q4 PRN PRN Reason: Nasal congestion Last Admin: 09/18/16 16:18 Dose: 1 spr Topiramate (Topamax) 100 mg PO DAILY [facility] Last Admin: 09/27/16 08:13 Dose: 100 mg - Labs Labs: 09/24/16 06:30 09/19/16 05:20 - Head Exam Head Exam: NORMAL INSPECTION - Eye Exam Eye Exam: Normal appearance - ENT Exam ENT Exam: Mucous Membranes Moist - Respiratory Exam Respiratory Exam: Clear to Ausculation Bilateral - Cardiovascular Exam Cardiovascular Exam: REGULAR RHYTHM - GI/Abdominal Exam GI & Abdominal Exam: Normal Bowel Sounds Assessment and Plan (1) Gait abnormality Status: Acute (2) S/P lumbar laminectomy Status: Acute (3) Chronic back pain Status: Acute (4) Lumbar radiculopathy Status: Acute - Assessment and Plan (Free Text) Plan: Cont meds Pain meds cont PT
--- NOTE | 2016-09-27 08:59 | CP.PCM.PN ---
Subjective - Date & Time of Evaluation Date of Evaluation: 09/24/16 Time of Evaluation: 10:00 - Subjective Subjective: Patient remains stable Has no chest pain or SOB afebrile Objective - Vital Signs/Intake and Output Vital Signs (last 24 hours): Temp Pulse Resp BP Pulse Ox 97.6 F 72 20 113/73 98 09/27/16 07:55 09/27/16 07:55 09/27/16 07:55 09/27/16 07:55 09/27/16 07:55 - Medications Medications: Current Medications Al Hydrox/Mg Hydrox/Simethicone (Maalox Plus 30 Ml) 30 ml PO TID PRN PRN Reason: Heartburn Last Admin: 09/16/16 20:36 Dose: 30 ml Amitriptyline HCl (Elavil) 10 mg PO HS [facility] Last Admin: 09/26/16 21:05 Dose: 10 mg Cyclobenzaprine HCl (Flexeril) 5 mg PO HS PRN PRN Reason: Muscle spasm Docusate Sodium (Colace) 100 mg PO BID PRN PRN Reason: Constipation Last Admin: 09/25/16 08:19 Dose: 100 mg Enoxaparin Sodium (Lovenox) 40 mg SC DAILY [facility] PRN Reason: Protocol Last Admin: 09/27/16 08:13 Dose: 40 mg Fentanyl (Duragesic) 1 patch TD Q3D [facility] PRN Reason: Protocol Last Admin: 09/25/16 09:14 Dose: 1 patch Fluticasone Propionate (Flonase) 1 spr BEATRIS BID [facility] Last Admin: 09/27/16 08:12 Dose: 1 spr Gabapentin (Neurontin) 600 mg PO HS [facility] Last Admin: 09/26/16 21:05 Dose: 600 mg Gabapentin (Neurontin) 300 mg PO DAILY [facility] Last Admin: 09/27/16 08:15 Dose: 300 mg Home Med (Linzess) 145 mg PO 0730,2100 [facility] Last Admin: 09/27/16 08:00 Dose: 145 mg Lactulose (Enulose) 20 gm PO DAILY PRN PRN Reason: Constipation Last Admin: 09/23/16 16:26 Dose: 20 gm Loratadine (Claritin) 10 mg PO DAILY PRN PRN Reason: Congestion Nortriptyline HCl (Pamelor) 50 mg PO HS [facility] Last Admin: 07/05/17 21:06 Dose: 50 mg Pantoprazole Sodium (Protonix Ec Tab) 40 mg PO DAILY [facility] Last Admin: 09/27/16 08:13 Dose: 40 mg Potassium Chloride (K-Dur 20 Meq Er Tab) 20 meq PO DAILY [facility] Last Admin: 09/27/16 08:13 Dose: 20 meq Sennosides (Senokot Tab) 8.6 mg PO HS PRN PRN Reason: Constipation Sodium Chloride ([place] Nasal [place]) 1 sprays BEATRIS Q4 PRN PRN Reason: Nasal congestion Last Admin: 09/18/16 16:18 Dose: 1 spr Topiramate (Topamax) 100 mg PO DAILY [facility] Last Admin: 09/27/16 08:13 Dose: 100 mg - Labs Labs: 09/24/16 06:30 09/19/16 05:20 - Head Exam Head Exam: NORMAL INSPECTION - Eye Exam Eye Exam: Normal appearance - ENT Exam ENT Exam: Mucous Membranes Moist - Respiratory Exam Respiratory Exam: Clear to Ausculation Bilateral - Cardiovascular Exam Cardiovascular Exam: REGULAR RHYTHM - GI/Abdominal Exam GI & Abdominal Exam: Normal Bowel Sounds - Neurological Exam Neurological Exam: Awake, Oriented x3 Assessment and Plan (1) Gait abnormality Status: Acute (2) S/P lumbar laminectomy Status: Acute (3) Chronic back pain Status: Acute (4) Lumbar radiculopathy Status: Acute - Assessment and Plan (Free Text) Plan: Cont meds Cont tx Cont PT pain meds
--- NOTE | 2016-09-27 09:01 | CP.PCM.PN ---
Subjective - Date & Time of Evaluation Date of Evaluation: 09/25/16 Time of Evaluation: 10:00 - Subjective Subjective: Patient is stable Has no chest pain or SOB afebrile Has minimal pain in the lower back area. Objective - Vital Signs/Intake and Output Vital Signs (last 24 hours): Temp Pulse Resp BP Pulse Ox 97.6 F 72 20 113/73 98 09/27/16 07:55 09/27/16 07:55 09/27/16 07:55 09/27/16 07:55 09/27/16 07:55 - Medications Medications: Current Medications Al Hydrox/Mg Hydrox/Simethicone (Maalox Plus 30 Ml) 30 ml PO TID PRN PRN Reason: Heartburn Last Admin: 09/16/16 20:36 Dose: 30 ml Amitriptyline HCl (Elavil) 10 mg PO [facility] Last Admin: 09/26/16 21:05 Dose: 10 mg Cyclobenzaprine HCl (Flexeril) 5 mg PO HS PRN PRN Reason: Muscle spasm Docusate Sodium (Colace) 100 mg PO BID PRN PRN Reason: Constipation Last Admin: 09/25/16 08:19 Dose: 100 mg Enoxaparin Sodium (Lovenox) 40 mg SC DAILY [facility] PRN Reason: Protocol Last Admin: 09/27/16 08:13 Dose: 40 mg Fentanyl (Duragesic) 1 patch TD Q3D [facility] PRN Reason: Protocol Last Admin: 09/25/16 09:14 Dose: 1 patch Fluticasone Propionate (Flonase) 1 spr BEATRIS BID [facility] Last Admin: 09/27/16 08:12 Dose: 1 spr Gabapentin (Neurontin) 600 mg PO HS [facility] Last Admin: 09/26/16 21:05 Dose: 600 mg Gabapentin (Neurontin) 300 mg PO DAILY [facility] Last Admin: 09/27/16 08:15 Dose: 300 mg Home Med (Linzess) 145 mg PO 0730,2100 [facility] Last Admin: 09/27/16 08:00 Dose: 145 mg Lactulose (Enulose) 20 gm PO DAILY PRN PRN Reason: Constipation Last Admin: 09/23/16 16:26 Dose: 20 gm Loratadine (Claritin) 10 mg PO DAILY PRN PRN Reason: Congestion Nortriptyline HCl (Pamelor) 50 mg PO [facility] Last Admin: 09/26/16 21:06 Dose: 50 mg Pantoprazole Sodium (Protonix Ec Tab) 40 mg PO DAILY [facility] Last Admin: 09/27/16 08:13 Dose: 40 mg Potassium Chloride (K-Dur 20 Meq Er Tab) 20 meq PO DAILY [facility] Last Admin: 09/27/16 08:13 Dose: 20 meq Sennosides (Senokot Tab) 8.6 mg PO HS PRN PRN Reason: Constipation Sodium Chloride ([place] Nasal [place]) 1 sprays BEATRIS Q4 PRN PRN Reason: Nasal congestion Last Admin: 09/18/16 16:18 Dose: 1 spr Topiramate (Topamax) 100 mg PO DAILY [facility] Last Admin: 09/27/16 08:13 Dose: 100 mg - Labs Labs: 09/24/16 06:30 09/19/16 05:20 - Head Exam Head Exam: NORMAL INSPECTION - Eye Exam Eye Exam: Normal appearance - ENT Exam ENT Exam: Mucous Membranes Moist - Respiratory Exam Respiratory Exam: Clear to Ausculation Bilateral - Cardiovascular Exam Cardiovascular Exam: REGULAR RHYTHM - GI/Abdominal Exam GI & Abdominal Exam: Normal Bowel Sounds - Neurological Exam Neurological Exam: CN II-XII Intact, Oriented x3 - Psychiatric Exam Psychiatric exam: Normal Mood Assessment and Plan (1) Gait abnormality Status: Acute (2) S/P lumbar laminectomy Status: Acute (3) Chronic back pain Status: Acute (4) Lumbar radiculopathy Status: Acute - Assessment and Plan (Free Text) Plan: Cont meds Con ttx Cont PT pain meds.
--- NOTE | 2016-09-27 09:02 | CP.PCM.PN ---
Subjective - Date & Time of Evaluation Date of Evaluation: 09/26/16 Time of Evaluation: 09:00 - Subjective Subjective: Patient remains well Able to ambulate with no pain Has achieved all goals of PT Objective - Vital Signs/Intake and Output Vital Signs (last 24 hours): Temp Pulse Resp BP Pulse Ox 97.6 F 72 20 113/73 98 09/27/16 07:55 09/27/16 07:55 09/27/16 07:55 09/27/16 07:55 09/27/16 07:55 - Medications Medications: Current Medications Al Hydrox/Mg Hydrox/Simethicone (Maalox Plus 30 Ml) 30 ml PO TID PRN PRN Reason: Heartburn Last Admin: 09/16/16 20:36 Dose: 30 ml Amitriptyline HCl (Elavil) 10 mg PO HS [facility] Last Admin: 09/26/16 21:05 Dose: 10 mg Cyclobenzaprine HCl (Flexeril) 5 mg PO HS PRN PRN Reason: Muscle spasm Docusate Sodium (Colace) 100 mg PO BID PRN PRN Reason: Constipation Last Admin: 09/25/16 08:19 Dose: 100 mg Enoxaparin Sodium (Lovenox) 40 mg SC DAILY [facility] PRN Reason: Protocol Last Admin: 09/27/16 08:13 Dose: 40 mg Fentanyl (Duragesic) 1 patch TD Q3D [facility] PRN Reason: Protocol Last Admin: 09/25/16 09:14 Dose: 1 patch Fluticasone Propionate (Flonase) 1 spr BEATRIS BID [facility] Last Admin: 09/27/16 08:12 Dose: 1 spr Gabapentin (Neurontin) 600 mg PO HS [facility] Last Admin: 09/26/16 21:05 Dose: 600 mg Gabapentin (Neurontin) 300 mg PO DAILY [facility] Last Admin: 09/27/16 08:15 Dose: 300 mg Home Med (Linzess) 145 mg PO 0730,2100 [facility] Last Admin: 09/27/16 08:00 Dose: 145 mg Lactulose (Enulose) 20 gm PO DAILY PRN PRN Reason: Constipation Last Admin: 09/23/16 16:26 Dose: 20 gm Loratadine (Claritin) 10 mg PO DAILY PRN PRN Reason: Congestion Nortriptyline HCl (Pamelor) 50 mg PO HS [facility] Last Admin: 09/26/16 21:06 Dose: 50 mg Pantoprazole Sodium (Protonix Ec Tab) 40 mg PO DAILY [facility] Last Admin: 09/27/16 08:13 Dose: 40 mg Potassium Chloride (K-Dur 20 Meq Er Tab) 20 meq PO DAILY [facility] Last Admin: 09/27/16 08:13 Dose: 20 meq Sennosides (Senokot Tab) 8.6 mg PO HS PRN PRN Reason: Constipation Sodium Chloride ([place] Nasal [place]) 1 sprays BEATRIS Q4 PRN PRN Reason: Nasal congestion Last Admin: 09/18/16 16:18 Dose: 1 spr Topiramate (Topamax) 100 mg PO DAILY [facility] Last Admin: 09/27/16 08:13 Dose: 100 mg - Labs Labs: 09/24/16 06:30 09/19/16 05:20 - Head Exam Head Exam: NORMAL INSPECTION - Eye Exam Eye Exam: Normal appearance - ENT Exam ENT Exam: Mucous Membranes Moist - Respiratory Exam Respiratory Exam: Clear to Ausculation Bilateral - Cardiovascular Exam Cardiovascular Exam: REGULAR RHYTHM - GI/Abdominal Exam GI & Abdominal Exam: Normal Bowel Sounds - Neurological Exam Neurological Exam: Awake, Oriented x3 Assessment and Plan (1) Gait abnormality Status: Acute (2) S/P lumbar laminectomy Status: Acute (3) Chronic back pain Status: Acute (4) Lumbar radiculopathy Status: Acute - Assessment and Plan (Free Text) Plan: Cont meds Cont tx Cont PT pain meds. DC plan for am.
--- NOTE | 2016-09-27 09:05 | CP.PCM.DIS ---
Provider - Provider Date of Admission: 09/13/16 17:31 Attending physician: Ezequiel Chin MD Primary care physician: Ezequiel Chin MD Time Spent in preparation of Discharge (in minutes): 30 Diagnosis - Discharge Diagnosis (1) Gait abnormality Status: Acute (2) S/P lumbar laminectomy Status: Acute (3) Chronic back pain Status: Acute (4) Lumbar radiculopathy Status: Acute Hospital Course - Lab Results Lab Results: Micro Results 09/20/16 06:55 Urine,Clean Catch Urine Culture - Final No Growth (<1,000 CFU/ML) 09/17/16 19:29 Urine,Clean Catch Urine Culture - Final 10-50,000 CFU/ML. MULTIPLE SPECIES. PROBABLE CONTAMINATION. Most Recent Lab Values WBC 4.9 K/uL (4.8-10.8) 09/24/16 06:30 RBC 4.00 Mil/uL (3.80-5.20) 09/24/16 06:30 Hgb 12.5 g/dL (12.0-16.0) 09/24/16 06:30 Hct 35.4 % (34.0-47.0) 09/24/16 06:30 MCV 88.5 fl (81.0-99.0) 09/24/16 06:30 MCH 31.3 pg (27.0-31.0) H 09/24/16 06:30 MCHC 35.4 g/dL (33.0-37.0) 09/24/16 06:30 RDW 12.9 % (11.5-14.5) 09/24/16 06:30 Plt Count 278 K/uL (130-400) 09/24/16 06:30 Sodium 141 mmol/l (132-148) 09/19/16 05:20 Potassium 4.1 MMOL/L (3.6-5.0) 09/19/16 05:20 Chloride 107 mmol/L (98-107) 09/19/16 05:20 Carbon Dioxide 22 mmol/L (22-30) 09/19/16 05:20 Anion Gap 16 (10-20) 09/19/16 05:20 BUN 13 mg/dl (7-17) 09/19/16 05:20 Creatinine 0.8 mg/dL (0.7-1.2) 09/19/16 05:20 Est GFR ( Amer) > 60 09/19/16 05:20 Est GFR (Non-Af Amer) > 60 09/19/16 05:20 Random Glucose 101 mg/dL (65-105) 09/19/16 05:20 Calcium 9.2 mg/dL (8.4-10.2) 09/19/16 05:20 Total Bilirubin 0.6 mg/dl (0.2-1.3) 09/14/16 05:40 AST 50 U/L (14-36) H 09/14/16 05:40 ALT 94 U/L (9-52) H 09/14/16 05:40 Alkaline Phosphatase 66 U/L (38-126) 09/14/16 05:40 Total Protein 7.2 G/DL (6.3-8.2) 09/14/16 05:40 Albumin 4.3 g/dL (3.5-5.0) 09/14/16 05:40 Globulin 2.9 gm/dL (2.2-3.9) 09/14/16 05:40 Albumin/Globulin Ratio 1.5 (1.0-2.1) 09/14/16 05:40 Urine Color Yellow (YELLOW) 09/17/16 19:29 Urine Clarity Slighty-cloudy (Clear) 09/17/16 19:29 Urine pH 6.0 (5.0-8.0) 09/17/16 19:29 Ur Specific [place] 1.025 (1.003-1.030) 09/17/16 19:29 Urine Protein Negative mg/dL (NEGATIVE) 09/17/16 19:29 Urine Glucose (UA) Neg mg/dL (Normal) 09/17/16 19:29 Urine Ketones Negative mg/dL (NEGATIVE) 09/17/16 19:29 Urine Blood Negative (NEGATIVE) 09/17/16 19:29 Urine Nitrate Negative (NEGATIVE) 09/17/16 19: Urine Bilirubin Negative (NEGATIVE) 09/17/16 19:29 Urine Urobilinogen 2.0 mg/dL (0.2-1.0) H 09/17/16 19:29 Ur Leukocyte Esterase Neg Dilia/uL (Negative) 09/17/16 19:29 Urine RBC (Auto) 3 /hpf (0-3) 09/17/16 19:29 Urine Microscopic WBC 4 /hpf (0-5) 09/17/16 19:29 Ur Squamous Epith Cells 1 /hpf (0-5) 09/17/16 19:29 - Hospital Course Hospital Course: This is a 46 y/o female admitted for acute rehab. She had a recent L5S1 hemilaminectomy for progressive worsening of lower back pain. She was started on PT and admitted to acute rehab as she had so much pain in the immediate post op period. She had episode of constipation from the pain meds. She did very well with PT and achieved all the goals of phys therapy and discharged in stable condition She was advised to follow up in 1 to 2 weeks in my office. Discharge Exam - Head Exam Head Exam: NORMAL INSPECTION - Eye Exam Eye Exam: Normal appearance - Respiratory Exam Respiratory Exam: NORMAL BREATHING PATTERN - Cardiovascular Exam Cardiovascular Exam: REGULAR RHYTHM - GI/Abdominal Exam GI & Abdominal Exam: Normal Bowel Sounds - Neurological Exam Neurological exam: CN II-XII Intact, Oriented x3, Reflexes Normal - Psychiatric Exam Psychiatric exam: Normal Mood Discharge Plan - Follow Up Plan Condition: GOOD Disposition: HOME/ ROUTINE Additional Instructions: Rx Tramadol and gabapentin f follow up in 2 weeks Referrals: Ezequiel Chin MD [Primary Care Provider] -
== END 2016-09-27 14:55 | disposition home or self-care (01) | DRG 950 ==
PROVIDERS: ADMIT Family Medicine; ATTEND Family Medicine
PROC: F07Z9FZ Gait Training/Functional Ambulation Treatment using Assistive, Adaptive, Supportive or Protective Equipment (ICD-10-PCS; principal; 2016-09-13)
PROC: F07L6FZ Therapeutic Exercise Treatment of Musculoskeletal System - Lower Back / Lower Extremity using Assistive, Adaptive, Supportive or Protective Equipment (ICD-10-PCS; 2016-09-13)
PROC: F08Z4FZ Home Management Treatment using Assistive, Adaptive, Supportive or Protective Equipment (ICD-10-PCS; 2016-09-14)
DX: Z48.89 Encounter for other specified surgical aftercare (principal); G89.29 Other chronic pain; R26.89 Other abnormalities of gait and mobility; M54.16 Radiculopathy, lumbar region; K59.03 Drug induced constipation; J02.9 Acute pharyngitis, unspecified; K29.00 Acute gastritis without bleeding; M06.9 Rheumatoid arthritis, unspecified; F41.9 Anxiety disorder, unspecified; Z90.49 Acquired absence of other specified parts of digestive tract

== ENCOUNTER 2016-12-05 06:40 | Inpatient (IN) | payer MEDICARE, MEDICAID ==
[2016-12-05 06:46] VITALS: BMI 30.9
[2016-12-05] MEDS ORDERED: Neostigmine Methylsulfate 2 MG/2 ML ML IV ONE ×2 (07:20→09:36)
[2016-12-05] MEDS ORDERED: Propofol 10 mg/ml Inj (20 ML) ONE (07:20)
[2016-12-05] MEDS ORDERED: Lidocaine 4% (Laryng-O-Jet) Kit MM ONE ×2 (07:20→08:38)
[2016-12-05] MEDS ORDERED: Succinylcholine 200 mg/10 ml Inj IV ONE (07:20)
[2016-12-05] MEDS ORDERED: Midazolam 2 MG/2 ML VIAL ONE (07:20)
[2016-12-05] MEDS ORDERED: Dexamethasone 4 mg/1 ml ONE (07:21)
[2016-12-05] MEDS ORDERED: Rocuronium 10 mg/ml (5 ml) ONE (07:21)
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
[2016-12-05] MEDS ORDERED: Lactated Ringer's 1,000 ML IV ONE (08:00)
[2016-12-05] MEDS ORDERED: Bupivacaine 0.5% Inj(30mL) ONE (08:02)
[2016-12-05] MEDS ORDERED: Absorbable Gelatin Sponge Size 100 ONE (08:03)
[2016-12-05] MEDS ORDERED: Lidocaine 2% w Epi 1:100,000 Inj IJ ONE (08:03)
[2016-12-05] MEDS ORDERED: Thrombin Topical 5,000 IU Spray Kit TOP ONE (09:05)
[2016-12-05] MEDS ORDERED: HEMOSTATIC MATRIX 10 ML DIS.NEEDLE TOP ONE (09:20)
[2016-12-05] MEDS: HYDROmorphone 0.5 mg/0.5 ml ISec IVP PRN ×2 (10:30→10:55)
[2016-12-05] MEDS ORDERED: Lactated Ringer's 1,000 ML IV SCH (11:15)
--- NOTE | 2016-12-05 11:50 | RAD ---
PROCEDURE: CHEST RADIOGRAPH, 1 VIEW HISTORY: Post-op evaluation COMPARISON: 09/10/2016 FINDINGS: LUNGS: Clear. PLEURA: No pneumothorax or pleural fluid seen. CARDIOVASCULAR: No radiographic findings to suggest acute or significant cardiovascular disease. OSSEOUS STRUCTURES: No significant abnormalities. VISUALIZED UPPER ABDOMEN: Normal. OTHER FINDINGS: None. IMPRESSION: No active disease. No acute/significant interval changes.
[2016-12-05] MEDS ORDERED: Pneumococcal 23-Valent Vaccine IM ONE (17:00)
[2016-12-05] MEDS: ceFAZolin 1 GM in Sodium Chloride 0.9% 100 ML IVPB SCH (17:03)
[2016-12-05] MEDS: Oxycodone/Acetaminophen 5/325 mg Tab PO PRN (17:10)
--- NOTE | 2016-12-05 20:32 | OP ---
PROCEDURE DATE: 12/05/2016 PREOPERATIVE DIAGNOSIS: Cervical spondylosis with myelopathy. POSTOPERATIVE DIAGNOSIS: Cervical spondylosis with myelopathy. PROCEDURES: Partial vertebrectomy of C4 and C5, discectomy of C4-C5, interbody fusion of C4-C5 using PEEK and bone, plating and instrumentation from C4 to C5 using an Amendia plate, fluoroscopy had been used, microscope had been used. SURGEON: Manjinder Fox MD DIESEL LOCOMOTIVE FIRER/FIREMAN: Kathryn Raines, physician bacteriology research assistant, who stayed throughout the case from the beginning to the end and helped me perform the surgery. DESCRIPTION OF PROCEDURE: The patient was brought to the operating room, anesthetized with general endotracheal anesthesia, placed in a supine position, head was placed in a doughnut, care was taken to protect all pressure points. Right side of the neck was thoroughly prepped and draped in the same sterile manner after marking the skin incision for cervical vertebrectomy. After prepping and draping the area, horizontal skin incision in neck region had been made. Bleeding skins had been controlled with bipolar commercial real estate assistant. After using a Bovie commercial real estate assistant, platysma had been cut, dissection had been carried out to trachea and esophagus medially and sternomastoid carried out laterally. Prevertebral fascia had been cauterized and cut. Identification of levels had been done with the help of fluoroscopy. Longus colli had been detached, attachment of vertebral body surface of C4 and C5, Dyonics retractor had been applied. Rest of the operation had been carried out under microscopic examination. By using high-speed drill, the vertebral bodies of C4 and C5 had been drilled. Drilling was continued until the cartilage endplates had been removed. Intermittent discectomy had been performed. The osteophytes had been removed. Decompression had been achieved. Posterior longitudinal ligament had been opened, dura had been taken from side to side. INTERBODY FUSION OF C4-C5 USING PEEK AND BONE: PEEK implant had been brought in, filled with demineralized bone, gently tapped into space created at the partial vertebrectomy of C4-C5. Position had been confirmed to be good. PLATING AND INSTRUMENTATION, C4 TO C5, USING AN AMENDIA PLATE: An Amendia plate had been placed at vertebral body surface of C4 to C5; by using 12-mm screw, it had been secured to vertebral bodies of C4 and C5. One screw could not be placed because the bone was found to be soft in that area and any further manipulation could have distorted the plate further. After that, however, the screws had been found to be strong enough to hold the plate. After that, hemostasis was best achieved. Conner drain was placed in the wound and brought out through a separate stab skin incision. Platysma closed with 3-0 Vicryl. Skin had been closed with intradermal 3 Vicryl stitches. The patient tolerated the procedure, after procedure mobilized to the recovery room in stable condition. Manjinder Fox MD
[2016-12-06] MEDS: ceFAZolin 1 GM in Sodium Chloride 0.9% 100 ML IVPB SCH ×3 (00:37→17:19)
[2016-12-06] MEDS: Oxycodone/Acetaminophen 5/325 mg Tab PO PRN ×2 (04:13→15:08)
[2016-12-06 05:46] LABS: BASO % 0.3 % (0.0-2.0); EOS % 0.3 % (0.0-4.0); HEMATOCRIT 34.3 % (34.0-47.0); LYMPH # 1.8 K/uL (1.0-4.3); LYMPH % 24.4 % (20.0-40.0); MEAN CELL VOLUME 91.8 fl (81.0-99.0); MEAN CORPUSCULAR HGB CONC 33.8 g/dL (33.0-37.0); MEAN PLATELET VOLUME 7.2 fl (7.2-11.7); MONO # 0.6 K/uL (0.0-0.8); MONO % 7.9 % (0.0-10.0); NEUT % 67.1 % (50.0-75.0); RED CELL DISTRIBUTION WIDTH 13.8 % (11.5-14.5); WHITE BLOOD COUNT 7.5 K/uL (4.8-10.8)
[2016-12-06 05:51] LABS: BLOOD UREA NITROGEN 8 mg/dl (7-17); CALCIUM 8.3 mg/dL (8.4-10.2); CARBON DIOXIDE 17 mmol/L (22-30); CHLORIDE 109 mmol/L (98-107); GFR AFRICAN-AMERICAN > 60; GLUCOSE,RANDOM 109 mg/dL (65-105); POTASSIUM 3.6 MMOL/L (3.6-5.0); SODIUM 137 mmol/l (132-148)
[2016-12-06] MEDS: Benzocaine/Menthol (Cepacol) Lozenge PO PRN ×2 (09:16→15:26)
[2016-12-06] MEDS ORDERED: Pneumococcal 23-Valent Vaccine IM ONE (22:30)
[2016-12-07] MEDS: ceFAZolin 1 GM in Sodium Chloride 0.9% 100 ML IVPB SCH ×3 (00:27→16:31)
[2016-12-07] MEDS: Oxycodone/Acetaminophen 5/325 mg Tab PO PRN (02:43)
[2016-12-07] MEDS: Benzocaine/Menthol (Cepacol) Lozenge PO PRN (02:49)
[2016-12-07 07:37] LABS: HEMATOCRIT 34.9 % (34.0-47.0); MEAN CELL VOLUME 91.8 fl (81.0-99.0); MEAN CORPUSCULAR HGB CONC 33.8 g/dL (33.0-37.0); RED CELL DISTRIBUTION WIDTH 13.9 % (11.5-14.5)
[2016-12-07 08:05] LABS: BLOOD UREA NITROGEN 14 mg/dl (7-17); CARBON DIOXIDE 19 mmol/L (22-30); CHLORIDE 110 mmol/L (98-107); GFR AFRICAN-AMERICAN > 60; GLUCOSE,RANDOM 96 mg/dL (65-105); POTASSIUM 3.2 MMOL/L (3.6-5.0); SODIUM 140 mmol/l (132-148)
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
--- NOTE | 2016-12-07 09:41 | CP.PCM.PN ---
Subjective - Date & Time of Evaluation Date of Evaluation: 12/06/16 Time of Evaluation: 11:00 - Subjective Subjective: Patient is stable post op. Has minimal pain on the op site Has no chest pain or SOB. Objective - Vital Signs/Intake and Output Vital Signs (last 24 hours): Temp Pulse Resp BP Pulse Ox 99.8 F H 110 H 20 123/80 99 12/07/16 08:16 12/07/16 08:16 12/07/16 08:16 12/07/16 08:16 12/07/16 08:16 - Medications Medications: Current Medications Amitriptyline HCl (Elavil) 10 mg PO HS [facility] Last Admin: 12/06/16 21:54 Dose: 10 mg Benzocaine/Menthol (Cepacol Sore Throat) 1 ho PO Q3 PRN PRN Reason: Sore Throat Last Admin: 12/07/16 02:49 Dose: 1 ho Cyclobenzaprine HCl (Flexeril) 5 mg PO TID PRN PRN Reason: Muscle spasm Last Admin: 12/07/16 08:42 Dose: 5 mg Docusate Sodium (Colace) 100 mg PO BID [facility] Last Admin: 12/07/16 08:44 Dose: 100 mg Famotidine (Pepcid) 20 mg PO BID [facility] Last Admin: 12/07/16 08:44 Dose: 20 mg Fentanyl (Duragesic) 1 patch TD Q3D [facility] PRN Reason: Protocol Last Admin: 12/05/16 21:25 Dose: 1 patch Fluticasone Propionate (Flonase) 2 spr BEATRIS DAILY [facility] Last Admin: 12/07/16 08:45 Dose: 2 spr Folic Acid (Folic Acid) 1 mg PO DAILY [facility] Last Admin: 12/07/16 08:45 Dose: 1 mg Gabapentin (Neurontin) 800 mg PO TID [facility] Last Admin: 12/07/16 08:43 Dose: 800 mg Cefazolin Sodium 1 gm/ Sodium (Chloride) 100 mls @ 100 mls/hr IVPB Q8 [facility] Last Admin: 12/07/16 08:40 Dose: 100 mls/hr Isoniazid (Niazid) 300 mg PO DAILY [facility] Last Admin: 12/07/16 08:44 Dose: 300 mg Ondansetron HCl (Zofran Inj) 4 mg IVP Q6 PRN PRN Reason: Nausea/Vomiting Last Admin: 12/05/16 17:25 Dose: 4 mg Oxycodone/Acetaminophen (Percocet 5/325 Mg Tab) 2 tab PO Q4 PRN PRN Reason: Pain, moderate (4-7) Stop: 12/08/16 10:47 Last Admin: 12/07/16 02:43 Dose: 2 tab Pyridoxine HCl (Vitamin B6 50 Mg Tab) 50 mg PO DAILY [facility] Last Admin: 12/07/16 08:42 Dose: 50 mg Topiramate (Topamax) 100 mg PO BID [facility] Last Admin: 12/07/16 08:42 Dose: 100 mg - Labs Labs: 12/07/16 06:50 12/07/16 06:50
--- NOTE | 2016-12-07 09:43 | CP.PCM.DIS ---
Provider - Provider Date of Admission: 12/05/16 10:22 Attending physician: Ezequiel Chin MD Primary care physician: Ezequiel Chin MD Hospital Course - Lab Results Lab Results: Most Recent Lab Values WBC 6.0 K/uL (4.8-10.8) 12/07/16 06:50 RBC 3.80 Mil/uL (3.80-5.20) 12/07/16 06:50 Hgb 11.8 g/dL (12.0-16.0) L 12/07/16 06:50 Hct 34.9 % (34.0-47.0) 12/07/16 06:50 MCV 91.8 fl (81.0-99.0) 12/07/16 06:50 MCH 31.0 pg (27.0-31.0) 12/07/16 06:50 MCHC 33.8 g/dL (33.0-37.0) 12/07/16 06:50 RDW 13.9 % (11.5-14.5) 12/07/16 06:50 Plt Count 192 K/uL (130-400) 12/07/16 06:50 MPV 7.2 fl (7.2-11.7) 12/06/16 04:45 Neut % (Auto) 67.1 % (50.0-75.0) 12/06/16 04:45 Lymph % (Auto) 24.4 % (20.0-40.0) 12/06/16 04:45 Braxton % (Auto) 7.9 % (0.0-10.0) 12/06/16 04:45 Eos % (Auto) 0.3 % (0.0-4.0) 12/06/16 04:45 Baso % (Auto) 0.3 % (0.0-2.0) 12/06/16 04:45 Neut # 5.0 K/uL (1.8-7.0) 12/06/16 04:45 Lymph # 1.8 K/uL (1.0-4.3) 12/06/16 04:45 [place]xton # 0.6 K/uL (0.0-0.8) 12/06/16 04:45 Eos # 0.0 K/uL (0.0-0.7) 12/06/16 04:45 Baso # 0.0 K/uL (0.0-0.2) 12/06/16 04:45 Sodium 140 mmol/l (132-148) 12/07/16 06:50 Potassium 3.2 MMOL/L (3.6-5.0) L 12/07/16 06:50 Chloride 110 mmol/L (98-107) H 12/07/16 06:50 Carbon Dioxide 19 mmol/L (22-30) L 12/07/16 06:50 Anion Gap 14 (10-20) 12/07/16 06:50 BUN 14 mg/dl (7-17) 12/07/16 06:50 Creatinine 0.5 mg/dL (0.7-1.2) L 12/07/16 06:50 Est GFR ( Amer) > 60 12/07/16 06:50 Est GFR (Non-Af Amer) > 60 12/07/16 06:50 Random Glucose 96 mg/dL (65-105) 12/07/16 06:50 Calcium 8.0 mg/dL (8.4-10.2) L 12/07/16 06:50 Blood Type O POSITIVE 12/05/16 07:03 Antibody Screen Negative 12/05/16 07:03 BBK History Checked Patient has bt 12/05/16 07:03 - Hospital Course Hospital Course: This is a 46 y/o female with progressive worsening of cervical radiculopathy had a cervical laminectomy . All conservative measures failed. Discharge Exam - Head Exam Head Exam: ATRAUMATIC, NORMAL INSPECTION, NORMOCEPHALIC Discharge Plan - Follow Up Plan Condition: GOOD Disposition: HOME/ ROUTINE Referrals: Ezequiel Chin MD [Primary Care Provider] -
--- NOTE | 2016-12-07 14:46 | RAD ---
PROCEDURE: Intraoperative Fluoroscopy. HISTORY: ANTERIOR CERVICAL DISCECTOMY WITH FUSION FINDINGS: Fluoroscopic assistance was provided. 16.1 seconds fluoroscopy time early utilized during this procedure. Radiation dose = 3.39 mGy
--- NOTE | 2016-12-07 14:57 | CP.PCM.PN ---
Subjective - Date & Time of Evaluation Date of Evaluation: 12/07/16 Time of Evaluation: 12:00 - Subjective Subjective: c/o incisional pain,left shoulder and LUE pre op symptoms improved,residual paresthesias,vivi soft diet,ambulating with min asst,voiding + flatus Objective - Vital Signs/Intake and Output Vital Signs (last 24 hours): Temp Pulse Resp BP Pulse Ox 99.8 F H 110 H 20 123/80 99 12/07/16 08:16 12/07/16 08:16 12/07/16 08:16 12/07/16 08:16 12/07/16 08:16 - Medications Medications: Current Medications Amitriptyline HCl (Elavil) 10 mg PO HS [facility] Last Admin: 12/06/16 21:54 Dose: 10 mg Benzocaine/Menthol (Cepacol Sore Throat) 1 ho PO Q3 PRN PRN Reason: Sore Throat Last Admin: 12/07/16 02:49 Dose: 1 ho Cyclobenzaprine HCl (Flexeril) 5 mg PO TID PRN PRN Reason: Muscle spasm Last Admin: 12/07/16 08:42 Dose: 5 mg Docusate Sodium (Colace) 100 mg PO BID [facility] Last Admin: 12/07/16 08:44 Dose: 100 mg Famotidine (Pepcid) 20 mg PO BID [facility] Last Admin: 12/07/16 08:44 Dose: 20 mg Fentanyl (Duragesic) 1 patch TD Q3D [facility] PRN Reason: Protocol Last Admin: 12/05/16 21:25 Dose: 1 patch Fluticasone Propionate (Flonase) 2 spr BEATRIS DAILY [facility] Last Admin: 12/07/16 08:45 Dose: 2 spr Folic Acid (Folic Acid) 1 mg PO DAILY [facility] Last Admin: 12/07/16 08:45 Dose: 1 mg Gabapentin (Neurontin) 800 mg PO TID [facility] Last Admin: 12/07/16 08:43 Dose: 800 mg Cefazolin Sodium 1 gm/ Sodium (Chloride) 100 mls @ 100 mls/hr IVPB Q8 [facility] Last Admin: 12/07/16 08:40 Dose: 100 mls/hr Isoniazid (Niazid) 300 mg PO DAILY [facility] Last Admin: 12/07/16 08:44 Dose: 300 mg Ondansetron HCl (Zofran Inj) 4 mg IVP Q6 PRN PRN Reason: Nausea/Vomiting Last Admin: 12/05/16 17:25 Dose: 4 mg Oxycodone/Acetaminophen (Percocet 5/325 Mg Tab) 2 tab PO Q4 PRN PRN Reason: Pain, moderate (4-7) Stop: 12/08/16 10:47 Last Admin: 12/07/16 02:43 Dose: 2 tab Pyridoxine HCl (Vitamin B6 50 Mg Tab) 50 mg PO DAILY [facility] Last Admin: 12/07/16 08:42 Dose: 50 mg Topiramate (Topamax) 100 mg PO BID [facility] Last Admin: 12/07/16 08:42 Dose: 100 mg - Labs Labs: 12/07/16 06:50 12/07/16 06:50 - Constitutional Appears: Well, Non-toxic - Head Exam Head Exam: ATRAUMATIC, NORMAL INSPECTION, NORMOCEPHALIC - Eye Exam Eye Exam: EOMI, Normal appearance, PERRL - Neck Exam Additional comments: wound C/D/I YOSEF with minimal [place] drainage,removed,dressing changed, phonating well,no hematoma or dysphagia - Cardiovascular Exam Cardiovascular Exam: REGULAR RHYTHM, +S1, +S2 - GI/Abdominal Exam GI & Abdominal Exam: Soft, Normal Bowel Sounds - Rectal Exam Rectal Exam: Deferred - Neurological Exam Neurological Exam: Alert, Oriented x3 Additional comments: VILLEGAS x 4 antigravity with good strength,residual paresthesias LUE - Psychiatric Exam Psychiatric exam: Normal Affect, Normal Mood - Skin Skin Exam: Dry, Intact Assessment and Plan - Assessment and Plan (Free Text) Assessment: 46 yo right hand dominant female POD#2 ACDF C4-5 for Spondylosis/HNP and Myelopathy,Neurologically stable Plan: out pt PT,pain control,daily dressing changes with gauze and tape,f/u with Dr. Fox,pt being d/c today home,all d/w Dr. Fox
[2016-12-07 16:22] VITALS: BP 118/75; PULSE 69; RESP 18; TEMP 98.3; O2SAT 96
== END 2016-12-07 19:15 | disposition home or self-care (01) | DRG 472 ==
LOC: H.OPSURG 06:40 → H.ERHOLD 10:22 → H.TEL 15:15 → H.MEDSURG1 12-06 18:23
PROVIDERS: ADMIT Family Medicine; ATTEND Family Medicine
PROC: 0RB30ZZ Excision of Cervical Vertebral Disc, Open Approach (ICD-10-PCS; 2016-12-05)
PROC: 0RG10A0 Fusion of Cervical Vertebral Joint with Interbody Fusion Device, Anterior Approach, Anterior Column, Open Approach (ICD-10-PCS; principal; 2016-12-05 09:45)
PROC: 3E0234Z Introduction of Serum, Toxoid and Vaccine into Muscle, Percutaneous Approach (ICD-10-PCS; 2016-12-07)
DX: M47.12 Other spondylosis with myelopathy, cervical region (principal); M50.021 Cervical disc disorder at C4-C5 level with myelopathy; F32.9 Major depressive disorder, single episode, unspecified; K21.9 Gastro-esophageal reflux disease without esophagitis; M54.12 Radiculopathy, cervical region; M54.16 Radiculopathy, lumbar region; Z23 Encounter for immunization; F41.9 Anxiety disorder, unspecified